=== PATIENT | male | born 1955 | race Caucasian/White ===

== ENCOUNTER 2017-05-28 22:38 | Inpatient (IN) | payer SELFPAY ==
[2017-05-28] MEDS ORDERED: ASPIRIN 81 MG TABLET, CHEWABLE PO ONE (22:45)
--- NOTE | 2017-05-28 23:09 | ER Document Report ---
ED Medical Screen (RME) - General Chief Complaint: Chest Tightness Stated Complaint: CHEST PAIN Time Seen by Provider: 05/28/17 23:06 Mode of Arrival: Wheelchair Information source: Patient Notes: 61-year-old male presents to ED for chest pain and epigastric pain. He states he was feeling good and went to lay down. States when he turned over he also only for extremely dizzy feeling like he was going to pass out, then started vomiting, and had diarrhea suddenly at the same time. Had not been having any nausea vomiting or diarrhea before then. States he feels better now than he did. He states that in August 2015 he had an episode of sepsis where his heart kidneys and everything were affected. He states he has not had any history of that since then. I have greeted and performed a rapid initial assessment of this patient. A comprehensive ED assessment and evaluation of the patient, analysis of test results and completion of medical decision making process will be conducted by an additional ED providers. TRAVEL OUTSIDE OF THE [place] IN LAST 30 DAYS: No - Related Data Allergies/Adverse Reactions: amoxicillin [Amoxicillin] Allergy (Severe, Verified 09/17/15 14:06) Difficulty breathing Past Medical History - Past Medical History Cardiac Medical History: Reports: Hx Hypertension - CONTROLLED Denies: Hx Heart Attack Pulmonary Medical History: Denies: Hx Asthma Neurological Medical History: Denies: Hx Cerebrovascular Accident, Hx Seizures Renal/ Medical History: Denies: Hx Peritoneal Dialysis GI Medical History: Reports: Hx Ulcer - YEARS AGO. Denies: Hx Hepatitis, Hx Hiatal Hernia Infectious Medical History: Denies: Hx Hepatitis Past Surgical History: Reports: Hx Appendectomy. Denies: Hx Open Heart Surgery , Hx Pacemaker - Immunizations Hx Diphtheria, Pertussis, Tetanus Vaccination: Yes Physical Exam - Vital signs Vitals: Temp Pulse Resp BP Pulse Ox 97.5 F 80 20 90/59 L 98 05/28/17 22:44 05/28/17 22:44 05/28/17 22:44 05/28/17 22:44 05/28/17 22:44 Course - Vital Signs Vital signs: Temp Pulse Resp BP Pulse Ox 97.5 F 80 20 90/59 L 98 05/28/17 22:44 05/28/17 22:44 05/28/17 22:44 05/28/17 22:44 05/28/17 22:44
[2017-05-28 23:29] LABS: ABSOLUTE EOSINOPHILS # (AUTO) 0.1 10^3/uL (0.0-0.6); ABSOLUTE LYMPHOCYTES (AUTO) 1.3 10^3/uL (0.5-4.7); ABSOLUTE MONOCYTES (AUTO) 1.1 10^3/uL (0.1-1.4); ABSOLUTE NEUT (AUTO) 4.9 10^3/uL (1.7-8.2); BASOPHILS % (AUTO) 0.5 % (0-2); EOSINOPHILS % (AUTO) 0.9 % (0-6); HEMATOCRIT 45.5 % (37.9-51.0); HEMOGLOBIN 15.6 g/dL (13.5-17.0); HGB HCT DIFFERENCE 1.3; LYMPHOCYTES % (AUTO) 17.4 % (13-45); MEAN CORPUSCULAR HEMOGLOBIN 30.4 pg (27.0-33.4); MEAN CORPUSCULAR HGB CONC 34.3 g/dL (32.0-36.0); MEAN CORPUSCULAR VOLUME 89 fl (80-97); MONOCYTES % (AUTO) 14.9 % (3-13); RED BLOOD COUNT 5.14 10^6/uL (4.35-5.55); RED CELL DISTRIBUTION WIDTH 14.9 % (11.5-14.0); SEGMENTED NEUTROPHILS % (AUTO) 66.3 % (42-78); WHITE BLOOD COUNT 7.3 10^3/uL (4.0-10.5)
[2017-05-28 23:42] LABS: ALANINE AMINOTRANSFERASE 57 U/L (21-72); ALBUMIN 4.1 g/dL (3.5-5.0); ALKALINE PHOSPHATASE 97 U/L (38-126); ANION GAP 12 (5-19); ASPARTATE AMINO TRANSFERASE 42 U/L (17-59); BILIRUBIN,DIRECT 0.5 mg/dL (0.0-0.4); BLOOD UREA NITROGEN 18 mg/dL (7-20); CALCIUM 9.4 mg/dL (8.4-10.2); CARBON DIOXIDE 27 mmol/L (22-30); CHLORIDE 100 mmol/L (98-107); CREATINE KINASE 319 U/L (55-170); CREATININE RESULT 1.49 mg/dL (0.52-1.25); GLUCOSE 169 mg/dL (75-110); POTASSIUM 3.7 mmol/L (3.6-5.0); SODIUM 139.2 mmol/L (137-145); TOTAL PROTEIN 7.6 g/dL (6.3-8.2)
[2017-05-28 23:52] LABS: CREATINE KINASE MB 2.37 ng/mL (<4.55); TROPONIN I < 0.012 ng/mL
--- NOTE | 2017-05-29 | RADIOLOGY REPORT (SQ) ---
EXAM DESCRIPTION: CHEST SINGLE VIEW COMPLETED DATE/TIME: 05/28/2017 11:18 pm REASON FOR STUDY: chest pain COMPARISON: 08/27/2015. EXAM PARAMETERS: NUMBER OF VIEWS: One view. TECHNIQUE: Single frontal radiographic view of the chest acquired. RADIATION DOSE: NA LIMITATIONS: None. FINDINGS: LUNGS AND PLEURA: No opacities, masses or pneumothorax. No pleural effusion. MEDIASTINUM AND HILAR STRUCTURES: No masses. Contour normal. HEART AND VASCULAR STRUCTURES: Heart normal in size. Normal vasculature. BONES: No acute findings. HARDWARE: None in the chest. OTHER: No other significant finding. IMPRESSION: NO ACUTE RADIOGRAPHIC FINDING IN THE CHEST. TECHNICAL DOCUMENTATION: JOB ID: [id number]
[2017-05-29] MEDS ORDERED: NORMAL SALINE 1000 ML 1,000 ML IV ONE (00:02)
--- NOTE | 2017-05-29 00:07 | ER Document Report ---
ED General - General Chief Complaint: Chest Tightness Stated Complaint: CHEST PAIN Time Seen by Provider: 05/28/17 23:06 Mode of Arrival: Wheelchair Notes: 81-year-old male with a history of sepsis presents to the ED with several complaints. He states that he has been having epigastric pain "like my chest is cracking open" for about 3 days nonexertional and non-positional. This is constant today. Today he was lying on the sofa turn around in bed and felt extremely dizzy like the world was spinning. He then lost consciousness which was witnessed by his . She said he was pale. He also had some diarrhea. Since then he started having worsening chest pressure and vomiting and was brought to the ED. He denies cough. Chronic shortness of breath. Low-dose prednisone for rheumatoid arthritis. No blood thinners. TRAVEL OUTSIDE OF THE [place] IN LAST 30 DAYS: No - Related Data Allergies/Adverse Reactions: amoxicillin [Amoxicillin] Allergy (Severe, Verified 09/17/15 14:06) Difficulty breathing Past Medical History - General Information source: Patient - Social History Smoking Status: Former Smoker Family History: Reviewed & Not Pertinent Patient has suicidal ideation: No Patient has homicidal ideation: No - Past Medical History Cardiac Medical History: Reports: Hx Hypertension - CONTROLLED Denies: Hx Heart Attack Pulmonary Medical History: Denies: Hx Asthma Neurological Medical History: Denies: Hx Cerebrovascular Accident, Hx Seizures Renal/ Medical History: Denies: Hx Peritoneal Dialysis GI Medical History: Reports: Hx Ulcer - YEARS AGO. Denies: Hx Hepatitis, Hx Hiatal Hernia Infectious Medical History: Denies: Hx Hepatitis Past Surgical History: Reports: Hx Appendectomy. Denies: Hx Open Heart Surgery , Hx Pacemaker - Immunizations Hx Diphtheria, Pertussis, Tetanus Vaccination: Yes Review of Systems - Review of Systems Notes: REVIEW OF SYSTEMS GEN: Denies fever, chills, weight loss ENT: Denies sore throat, nasal discharge, ear pain EYES: Denies blurry vision, eye pain, discharge CV: Chest pain RESP: Denies cough, shortness of breath, wheezing GI: Diarrhea MSK: Denies joint pain/swelling, edema, SKIN: Denies rash, skin lesions LYMPH: Denies swollen glands/lymph nodes NEURO: Dizziness and loss of consciousness PSYCH: Denies depression, suicidal or homicidal ideation PHYSICAL EXAMINATION General: No acute distress, well-nourished Head: Atraumatic, normocephalic ENT: Mouth normal, oropharynx moist, no exudates or tonsillar enlargement Eyes: Conjunctiva normal, pupils equal, lids normal Neck: No JVD, supple, no guarding CVS: Normal rate, regular rhythm, no murmurs Resp: No resp distress, equal and normal breath sounds bilaterally GI: Nondistended, soft, obese, no tenderness to palpation, no rebound or guarding Ext: No deformities, no edema, normal range of motion in upper and lower ext Back: No CVA or midline TTP Skin: Red rash to right flank appears chronic. Multiple numerous skin tags. Lymphatic: No lymphadeopathy noted Neuro: Awake, alert. Seems slightly tired. Face symmetric. GCS 15. Radial nerve II through XII intact. No pronator drift. Physical Exam - Vital signs Vitals: Temp Pulse Resp BP Pulse Ox 97.5 F 80 20 90/59 L 98 05/28/17 22:44 05/28/17 22:44 05/28/17 22:44 05/28/17 22:44 05/28/17 22:44 Course - Re-evaluation Re-evalutation: 05/29/17 00:06 61-year-old male presents with vomiting diarrhea dizziness and syncope. He has also having chest pain for a few days. Here in the ED is hypotensive. His neuro exam is symmetric. I am concerned for sepsis from either pneumonia or UTI , hypotension from AK I dehydration from diarrhea. Doubt stroke at this time. Also concern for aortic pathology given the abdominal and chest pain with hypotension. Plan: Sepsis workup, empiric fluids, bedside ultrasound for AAA. His ECG is done and does not show ischemic change. Troponin is pending. Note: Patient was seen in triage partial lab workup was ordered. I evaluated him at 12:05 AM and elected to order sepsis labs. 05/29/17 01:08 Patient reassessed at 1 AM. Pressure now 100. Patient looks pinker and feels better. He is no longer list list. Bedside ultrasound is difficult for his aorta, so I will do a CT scan. His labs returned essentially normal 05/29/17 03:[address] aorta are normal. Chest x-ray is negative. Urinalysis is pending. Patient is doing better, this may be a dehydration however given his chest pain he will need to be admitted. Discussed with Dr. Phan who accepted. - Vital Signs Vital signs: Temp Pulse Resp BP Pulse Ox 97.5 F 80 18 100/68 94 05/28/17 22:44 05/28/17 22:44 05/29/17 01:16 05/29/17 01:16 05/29/17 01:16 - Laboratory Result Diagrams: 05/28/17 23:10 05/28/17 23:10 Laboratory results interpreted by me: 05/28/17 05/28/17 23:10 23:10 RDW 14.9 H Monocytes % 14.9 H Creatinine 1.49 H Est GFR ( Amer) 58 L Est GFR (Non-Af Amer) 48 L Glucose 169 H Direct Bilirubin 0.5 H Creatine Kinase 319 H - EKG Interpretation by Me EKG shows normal: Sinus rhythm Holland/QRS: LBBB When compared to previous EKG there are: No significant change Critical Care Note - Critical Care Note Total time excluding time spent on procedures (mins): 35 Comments: The above patient is critically ill. Not including procedures, but including direct re-evaluations, speaking with patient and/or consultants, interpreting results, and documenting, I spent the total amount of minute listed listed above on critical care time
--- NOTE | 2017-05-29 00:50 | RADIOLOGY REPORT (SQ) ---
EXAM DESCRIPTION: CHEST SINGLE VIEW COMPLETED DATE/TIME: 05/29/2017 12:29 am REASON FOR STUDY: hypoTN r/o oinfilatrate COMPARISON: None. 05/28/[address] and CR, 08/27/2016. EXAM PARAMETERS: NUMBER OF VIEWS: One view. TECHNIQUE: Single frontal radiographic view of the chest acquired. RADIATION DOSE: NA LIMITATIONS: None. FINDINGS: LUNGS AND PLEURA: Moderate lung volumes. Small atelectasis or scar of the left lung base. Stable. MEDIASTINUM AND HILAR STRUCTURES: No masses. Contour normal. HEART AND VASCULAR STRUCTURES: Heart normal in size. Normal vasculature. BONES: No acute findings. HARDWARE: None in the chest. OTHER: No other significant finding. IMPRESSION: No acute cardiopulmonary findings. TECHNICAL DOCUMENTATION: JOB ID: [id number]
--- NOTE | 2017-05-29 02:08 | RADIOLOGY REPORT (SQ) ---
EXAM DESCRIPTION: CT HEAD WITHOUT COMPLETED DATE/TIME: 05/29/2017 1:57 am REASON FOR STUDY: dizzy vomiting COMPARISON: 1.8.16 TECHNIQUE: Axial images acquired through the brain without intravenous contrast. Images reviewed wi th bone, brain and subdural windows. Images stored on PACS. All CT scanners at this facility use dose modulation, iterative reconstruction, and/or weight based d osing when appropriate to reduce radiation dose to as low as reasonably achievable (ALARA). [facility]: Dose Right [facility]: CareDose [facility]: Dose Right [facility]: Teradose 4D [facility]: [employer] RADIATION DOSE: Up-to-date CT equipment and radiation dose reduction techniques were employed. CTDIv ol: 64.6 mGy. DLP: 1163 mGy-cm. mGy. LIMITATIONS: None. FINDINGS: VENTRICLES: Normal size and contour. CEREBRUM: No masses. No hemorrhage. No midline shift. No evidence for acute infarction. Normal gra y/white matter differentiation. No areas of low density in the white matter. CEREBELLUM: No masses. No hemorrhage. No alteration of density. No evidence for acute infarction. EXTRAAXIAL SPACES: No fluid collections. No masses. ORBITS AND GLOBE: No intra- or extraconal masses. Normal contour of globe without masses. CALVARIUM: No fracture. PARANASAL SINUSES: No fluid or mucosal thickening. SOFT TISSUES: No mass or hematoma. OTHER: No other significant finding. IMPRESSION: NORMAL BRAIN CT WITHOUT CONTRAST. EVIDENCE OF ACUTE STROKE: NO. COMMENT: Quality ID # [id number]: Final reports with documentation of one or more dose reduction techniques (e.g., Automated exposure control, adjustment of the mA and/or kV according to patient size, use of iterative reconstruction technique) TECHNICAL DOCUMENTATION: JOB ID: [id number] [employer]- All Rights Reserved
--- NOTE | 2017-05-29 02:21 | RADIOLOGY REPORT (SQ) ---
EXAM DESCRIPTION: CTA ABDOMEN/PELVIS W WO COMPLETED DATE/TIME: 05/29/2017 1:57 am REASON FOR STUDY: abd pn, hypoTN COMPARISON: 08/27/2015 TECHNIQUE: CT scan of the abdominal aorta extending to the iliac bifurcation performed with and with out intravenous contrast using helical scanning technique with dynamic intravenous contrast injection . Images reviewed with lung, soft tissue, and bone windows. Reconstructed coronal and sagittal MPR im ages reviewed. All images stored on PACS. Advanced 3D imaging as volume rendering, MIPS, SSD performed? yes All CT scanners at this facility use dose modulation, iterative reconstruction, and/or weight based d osing when appropriate to reduce radiation dose to as low as reasonably achievable (ALARA). [facility]: Dose Right [facility]: CareDose [facility]: Dose Right [facility]: Teradose 4D [facility]: [employer] CONTRAST TYPE AND DOSE: contrast/concentration: Isovue 370.00 mg/ml; Total Contrast Delivered: 100.0 ml; Total Saline Delivered: 52.0 ml RENAL FUNCTION: Creatinine 1.5 LIMITATIONS: None. FINDINGS: AORTA AND VESSELS: No aneurysm. No dissection. Renal arteries, SMA, celiac without stenosi s. Small coronary arterial calcification atherosclerosis. LUNG BASES: No significant findings. No nodules or infiltrates. Small scattered atelectasis or scar. Mild emphysema. LIVER: Normal size. No masses or dilated ducts. Moderate hepatic steatosis. SPLEEN: Normal size. No focal lesions. Prominent. PANCREAS: No masses. No significant calcifications. No adjacent inflammation or peripancreatic fluid collections. Pancreatic duct not dilated. GALLBLADDER: No identified stones by CT criteria. No inflammatory changes to suggest cholecystitis. ADRENAL GLANDS: No significant masses or asymmetry. RIGHT KIDNEY AND URETER: No mass, calculi or urinary tract obstruction. Small likely benign cysts. LEFT KIDNEY AND URETER: No mass, calculi or urinary tract obstruction. Small likely benign cysts. RETROPERITONEUM: No retroperitoneal adenopathy, hemorrhage or masses. BOWEL AND PERITONEAL CAVITY: No masses or inflammatory changes. No free fluid or peritoneal masses. APPENDIX: Surgically absent. ABDOMINAL WALL: No masses. No hernias. BONY STRUCTURES: Minimal T11 and T12 anterior vertebral wedging, chronic. Vacuum desiccated-protrusi ve disc disease and spondylosis between the L4 and S1 levels contribute to [id number] spinal an d foraminal canal stenoses including moderate thecal sac compression at the L4-5 level. 3-D IMAGING: Confirms the above findings. OTHER: Right inguinal calcified granulomata partially imaged. IMPRESSION: No acute findings. NO ABDOMINAL AORTIC ANEURYSM, DISSECTION OR SIGNIFICANT STENOSIS. C hronic desiccated bulge/protrusive disc disease between the L4 and S1 levels. TECHNICAL DOCUMENTATION: JOB ID: [id number] Quality ID # [id number]: Final reports with documentation of one or more dose reduction techniques (e.g., Au tomated exposure control, adjustment of the mA and/or kV according to patient size, use of iterative reconstruction technique) 2010 [employer]- All Rights Reserved
[2017-05-29 03:25] LABS: APPEARANCE,URINE CLEAR; BILIRUBIN,URINE NEGATIVE (NEGATIVE); GLUCOSE, URINE NEGATIVE (NEGATIVE); KETONES,URINE NEGATIVE (NEGATIVE); LEUKOCYTE ESTERASE,URINE NEGATIVE (NEGATIVE); NITRITE,URINE NEGATIVE (NEGATIVE); PROTEIN,URINE NEGATIVE (NEGATIVE); URINE SPECIFIC GRAVITY 1.041; UROBILINOGEN,URINE NEGATIVE mg/dL (<2.0)
[2017-05-29] MEDS ORDERED: PROMETHAZINE HCL 25 MG TABLET PO PRN (04:49)
[2017-05-29] MEDS ORDERED: NORMAL SALINE 1000 ML 1,000 ML IV PRN (07:48)
[2017-05-29] MEDS ORDERED: ONDANSETRON HCL INJ/PF 4 MG/2 ML SDV IV PRN (07:48)
--- NOTE | 2017-05-29 08:09 | EKG REPORT ---
SEVERITY:- ABNORMAL ECG - SINUS RHYTHM LEFT BUNDLE BRANCH BLOCK : Confirmed by: Juan Mattson MD 29-May-2017 08:09:18
[2017-05-29] MEDS ORDERED: CALCIUM CARBONATE 500 MG TAB.CHEW PO PRN (08:34)
--- NOTE | 2017-05-29 08:39 | PDOC H&P ---
History of Present Illness Admission Date/PCP: EMERITA RUSSO MD Patient complains of: Dizziness and passing out History of Present Illness: WARREN MEDEROS is a 61 year old male still rheumatoid arthritis and hypertension presenting with a complaint of not feeling well since Sunday. Patient states he stayed home from work on Sunday. Patient said he was feeling better. Patient stated he had an episode of what he thought was passing out. Patient said he was lying on the sofa and rolled over when he rolled over the house began to spin. Patient states that when he sat up he became nauseated and vomited and also had diarrhea. Patient states she also developed some cold sweats and some chest discomfort. When describing the chest discomfort was more so in the epigastric region. Patient states he used to have very bad heartburn in the past. Patient says he often times he drinks milk or take Rolaids and it goes away. She denies any chest pain at this time. Patient denies any history of heart attack or stroke. States that he has had vertigo in the past. Patient states that he had been eating well since Sunday. Patient states he has been drinking but maybe not enough. 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 Patient states he drinks coffee sodas but tries to drink more water than anything. Patient states that his did have a cold however he has not had any cold symptoms. Patient does have a history of sinus for which he takes nasal spray. Patient also complains of chronic fatigue. ED patient had a CT of the head which was negative for stroke. Patient was given fluid bolus. Patient troponins are negative thus far. Patient had a CTA abdomen and pelvis which did not show any acute findings. Vitals are currently stable. Electrolytes are normal for the exception of creatinine which appears to be chronic. Patient is being brought for observation. Past Medical History Cardiac Medical History: Reports: Hypertension - CONTROLLED Denies: Myocardial Infarction Pulmonary Medical History: Denies: Asthma Neurological Medical History: Denies: Seizures GI Medical History: Reports: Gastroesophageal Reflux Disease Denies: Hepatitis, Hiatal Hernia Hematology: Denies: Anemia, Sickle Cell Disease Past Surgical History Past Surgical History: Reports: Appendectomy Denies: Pacemaker Social History Information Source: Patient Lives with: Spouse/Significant other Smoking Status: Former Smoker Frequency of Alcohol Use: None Hx Recreational Drug Use: No Drugs: None Hx Prescription Drug Abuse: No - Advance Directive Resuscitation Status: Full Code Family History Family History: CAD, DM Parental Family History Reviewed: Yes Children Family History Reviewed: NA Sibling(s) Family History Reviewed.: NA Medication/Allergy Home Medications: Losartan/Hydrochlorothiazide [Losartan-Hctz 100-25 mg Tab] 100 mg PO DAILY 05/29 Prednisone 5 mg PO DAILY 05/29/17 Tofacitinib Citrate [Xeljanz Xr] 11 mg PO DAILY 05/29/17 Allergies/Adverse Reactions: amoxicillin [Amoxicillin] Allergy (Severe, Verified 09/17/15 14:06) Difficulty breathing Review of Systems Constitutional: PRESENT: anorexia, fatigue, weakness. ABSENT: fever(s), night sweats Eyes: ABSENT: visual disturbances Nose, Mouth, and Throat: PRESENT: vertigo. ABSENT: headache(s) Cardiovascular: PRESENT: chest pain. ABSENT: edema Respiratory: ABSENT: cough Gastrointestinal: PRESENT: heartburn, nausea, vomiting Genitourinary: ABSENT: hematuria Musculoskeletal: PRESENT: muscle weakness Neurological: PRESENT: syncope, vertigo, weakness. ABSENT: convulsions, focal weakness Endocrine: ABSENT: cold intolerance Hematologic/Lymphatic: ABSENT: lymphadenopathy Allergic/Immunologic: PRESENT: as per HPI Physical Exam Vital Signs: Temp Pulse Resp BP Pulse Ox 97.5 F 80 16 116/68 96 05/28/17 22:44 05/28/17 22:44 05/29/17 07:01 05/29/17 07:01 05/29/17 07:01 Intake & Output 05/28/17 05/29/17 05/30/17 06:59 06:59 06:59 Weight 127.006 kg General appearance: PRESENT: no acute distress, obese Head exam: PRESENT: normocephalic Eye exam: PRESENT: EOMI, PERRLA, other - skin tags around the eye. ABSENT: periorbital swelling, scleral icterus Teeth exam: PRESENT: poor dentation Neck exam: PRESENT: full ROM. ABSENT: tracheal deviation Respiratory exam: PRESENT: clear to auscultation ilan, unlabored. ABSENT: retraction, wheezes Cardiovascular exam: PRESENT: RRR Pulses: PRESENT: +2 pedal pulses bilateral GI/Abdominal exam: PRESENT: normal bowel sounds, soft, other. ABSENT: rebound - protuberant, tenderness Rectal exam: PRESENT: deferred Extremities exam: ABSENT: pedal edema Musculoskeletal exam: PRESENT: full ROM, normal inspection Neurological exam: PRESENT: alert, awake, oriented to person, oriented to place , oriented to time, oriented to situation, CN II-XII grossly intact Psychiatric exam: PRESENT: normal mood Skin exam: PRESENT: intact, warm Results Laboratory Results: 05/28/17 23:10 05/28/17 23:10 05/28/17 05/28/17 05/29/17 23:10 23:10 00:24 WBC 7.3 RBC 5.14 Hgb 15.6 Hct 45.5 MCV 89 MCH 30.4 MCHC 34.3 RDW 14.9 H Plt Count 186 Seg Neutrophils % 66.3 Lymphocytes % 17.4 Monocytes % 14.9 H Eosinophils % 0.9 Basophils % 0.5 Absolute Neutrophils 4.9 Absolute Lymphocytes 1.3 Absolute Monocytes 1.1 Absolute Eosinophils 0.1 Absolute Basophils 0.0 Sodium 139.2 Potassium 3.7 Chloride 100 Carbon Dioxide 27 Anion Gap 12 BUN 18 Creatinine 1.49 H Est GFR ( Amer) 58 L Est GFR (Non-Af Amer) 48 L Glucose 169 H Lactic Acid 1.2 Calcium 9.4 Total Bilirubin 1.0 AST 42 ALT 57 Alkaline Phosphatase 97 Total Protein 7.6 Albumin 4.1 Urine Color Urine Appearance Urine pH Ur Specific Lotus Urine Protein Urine Glucose (UA) Urine Ketones Urine Blood Urine Nitrite Ur Leukocyte Esterase Urine WBC (Auto) Urine RBC (Auto) 05/29/17 02:58 WBC RBC Hgb Hct MCV MCH MCHC RDW Plt Count Seg Neutrophils % Lymphocytes % Monocytes % Eosinophils % Basophils % Absolute Neutrophils Absolute Lymphocytes Absolute Monocytes Absolute Eosinophils Absolute Basophils Sodium Potassium Chloride Carbon Dioxide Anion Gap BUN Creatinine Est GFR ( Amer) Est GFR (Non-Af Amer) Glucose Lactic Acid Calcium Total Bilirubin AST ALT Alkaline Phosphatase Total Protein Albumin Urine Color YELLOW Urine Appearance CLEAR Urine pH 6.0 Ur Specific Lotus 1.041 Urine Protein NEGATIVE Urine Glucose (UA) NEGATIVE Urine Ketones NEGATIVE Urine Blood NEGATIVE Urine Nitrite NEGATIVE Ur Leukocyte Esterase NEGATIVE Urine WBC (Auto) 4 Urine RBC (Auto) 1 05/28/17 05/28/17 05/29/17 23:10 23:10 02:40 Creatine Kinase 319 H CK-MB (CK-2) 2.37 Troponin I < 0.012 0.017 Impressions: Chest X-Ray 05/29/17 00:03 IMPRESSION: No acute cardiopulmonary findings. Abdomen/Pelvis CTA 05/29/17 01:09 IMPRESSION: No acute findings. NO ABDOMINAL AORTIC ANEURYSM, DISSECTION OR SIGNIFICANT STENOSIS. Chronic desiccated bulge/protrusive disc disease between the L4 and S1 levels. Head CT 05/29/17 01:09 IMPRESSION: NORMAL BRAIN CT WITHOUT CONTRAST. EVIDENCE OF ACUTE STROKE: NO. Assessment & Plan - Diagnosis (1) Syncope Qualifiers: Syncope type: vasovagal syncope Qualified Code(s): R55 - Syncope and collapse Is this a current diagnosis for this admission?: Yes Plan: Most likely likely vasovagal due to the fact that patient reports the episode when he attempted to stand up. As patient states will continue IV hydration. Will check orthostatics. Place patient on telemetry. Check carotid Doppler and echo. CT of the head was negative. Will hold losartan and hydrochlorothiazide. Patient to go to bathroom with assistance. (2) CKD (chronic kidney disease) stage 3, GFR 30-59 ml/min Is this a current diagnosis for this admission?: Yes Plan: Appears to be chronic in nature. Patient creatinine was elevated in the past. Will hold losartan and hydrochlorothiazide and start gentle hydration. Will follow up renal function in the morning. (3) Arthritis or polyarthritis, rheumatoid Qualifiers: Rheumatoid arthritis location: unspecified site Is this a current diagnosis for this admission?: Yes Plan: Patient follows up with a grain trimmer and is on chronic steroids and Xeljanz. (4) Hypertension Qualifiers: Hypertension type: essential hypertension Qualified Code(s): I10 - Essential (primary) hypertension Is this a current diagnosis for this admission?: Yes Plan: Patient blood pressures low normal. Will hold patient blood pressure medications considering recent syncopal episode. (5) GERD (gastroesophageal reflux disease) Qualifiers: Esophagitis presence: esophagitis presence not specified Qualified Code(s) : K21.9 - Gastro-esophageal reflux disease without esophagitis Is this a current diagnosis for this admission?: Yes Plan: Patient reports a history of "bad heartburn". Will continue PPI and as needed Tums. (6) Obesity Qualifiers: Obesity type: due to excess calories Obesity classification: adult class 3 (BMI >= 40) Body mass index: BMI 40.0-44.9 Is this a current diagnosis for this admission?: Yes Plan: Counseled patient on diet and physical activity as tolerated. (7) Fatigue Qualifiers: Fatigue type: chronic, unspecified Is this a current diagnosis for this admission?: Yes Plan: May be related to his rheumatoid arthritis. Will check B12, folate, thyroid, Vitamin D and hemoglobin A1c. - Time Time Spent: 30 to 50 Minutes Medications reviewed and adjusted accordingly: Yes Anticipated discharge: Home Within: within 48 hours
[2017-05-29 08:54] LABS: CHOLESTEROL 175.47 mg/dL (0-200); Direct HDL 33 mg/dL (>40); TRIGLYCERIDES 190 mg/dL (<150)
[2017-05-29] MEDS ORDERED: LANSOPRAZOLE 30 MG TAB.RAP.DR PO ONE (09:00)
[2017-05-29 09:04] LABS: DIRECT LDL 121 mg/dL (<100)
[2017-05-29] MEDS ORDERED: TOFACITINIB CITRATE 11 MG PO SCH (10:00)
--- NOTE | 2017-05-29 11:06 | RADIOLOGY REPORT (SQ) ---
EXAM DESCRIPTION: CAROTID DOPPLER COMPLETED DATE/TIME: 05/29/2017 10:03 am REASON FOR STUDY: syncope COMPARISON: None. TECHNIQUE: Grayscale ultrasound, Doppler velocity and spectra, and color Doppler images acquired of the extra-cranial carotid and vertebral arteries. Images stored on PACS. LIMITATIONS: None. FINDINGS: RIGHT CAROTID CCA Velocities: 6 7 cm/s. ICA Velocities Peak systolic 70cm/s. End diastolic 37cm/s. Proximal ICA/CCA peak systolic ratio 1.07. Spectra normal. No significant plaque. LEFT CAROTID CCA Velocities: 64 cm/s ICA Velocities Peak systolic 82cm/s. End diastolic 32cm/s. Proximal ICA/CCA peak systolic ratio 1.29. Spectra normal. No significant plaque. VERTEBRAL ARTERIES: Antegrade flow. Normal waveforms. SUBCLAVIAN ARTERIES: No finding. OTHER: No other significant finding. IMPRESSION: NO HEMODYNAMICALLY SIGNIFICANT STENOSIS. COMMENT: Quality ID #[id number]: Velocity criteria are extrapolated from the diameter data as defined by t carl Society of Radiologists in Ultrasound Consensus Conference. Radiology 2003: 229; 340-346. TECHNICAL DOCUMENTATION: JOB ID: [id number] [employer]- All Rights Reserved
--- NOTE | 2017-05-29 12:59 | XCELERA REPORT ---
[address] [address] Transthoracic Echocardiogram Report Name: WARREN MEDEROS Age: 61 yrs Gender: Male : 1955 Patient Status: Inpatient Patient Location: [place] [address]^A Study Date: 05/29/2017 08:42 AM Height: 69 in Weight: 280 lb BSA: 2.4 m2 Procedure: A complete two-dimensional transthoracic echocardiogram was performed (2D, M-mode, spectral and color flow Doppler). The study was technically difficult with many images being suboptimal in quality. Reason For Study: Syncope Ordering Physician: АНДРЕЙ SOLIZ Performed By: Hanna Alford Interpretation Summary The study was technically difficult with many images being suboptimal in quality. Left ventricular systolic function is severely reduced. Consider additional methods to assess LVEF such as MUGA scan, CTA heart, cardiac MRI, JESSIKA, etc. if clinically indicated. Doppler measurements suggest pseudonormalized left ventricular relaxation, which is associated with grade II/IV or mild to moderate diastolic dysfunction There is severe global hypokinesis of the left ventricle. Regional wall motion abnormalities cannot be excluded due to limited visualization. The left ventricular apex is not well visualized. Thrombus can not be excluded. The left ventricle is grossly normal size. The right ventricular systolic function is normal. The left atrial size is normal. The right atrium is normal in size There is a trace to mild amount of mitral regurgitation There is no mitral valve stenosis. No aortic regurgitation is present. There is no aortic valve stenosis There is a trace or physiologic amount of tricuspid regurgitation Tricuspid regurgitation jet envelope not well defined to measure RV systolic pressure accurately. The aortic root is not well visualized. The inferior vena cava was not well visualized There is no pericardial effusion. MMode/2D Measurements & Calculations RVDd: 3.7 cm LVIDd: 4.3 cm FS: 14.5 % Ao root diam: 2.5 cm IVSd: 0.90 cm LVIDs: 3.7 cm EDV(Teich): 82.5 ml LVPWd: 0.89 cm ESV(Teich): 56.9 ml Ao root area: 5.0 cm2 EF(Teich): 31.0 % LA dimension: 3.2 cm Doppler Measurements & Calculations MV E max dragan: MV P1/2t max dragan: Ao V2 max: LV V1 max P.8 cm/sec 92.3 cm/sec 119.0 cm/sec 2.0 mmHg MV A max dragan: MV P1/2t: 58.1 msec Ao max PG: LV V1 max: 126.9 cm/sec 5.7 mmHg 70.1 cm/sec MV E/A: 0.72 MVA(P1/2t): 3.8 cm2 MV dec slope: 465.6 cm/sec2 PA V2 max: PI end-d dragan: 99.7 cm/sec 74.7 cm/sec PA max P.0 mmHg Left Ventricle The left ventricle is grossly normal size. Left ventricular systolic function is severely reduced. Consider additional methods to assess LVEF such as MUGA scan, CTA heart, cardiac MRI, JESSIKA, etc. if clinically indicated. Doppler measurements suggest pseudonormalized left ventricular relaxation, which is associated with grade II/IV or mild to moderate diastolic dysfunction. There is severe global hypokinesis of the left ventricle. Regional wall motion abnormalities cannot be excluded due to limited visualization. The left ventricular apex is not well visualized. Thrombus can not be excluded. Right Ventricle The right ventricle is grossly normal size. There is normal right ventricular wall thickness. The right ventricular systolic function is normal. Atria The right atrium is normal in size. The left atrial size is normal. Interarterial septum not well visualized and not well dopplered. Cannot comment on ASD/PFO presence. Mitral Valve The mitral valve is not well visualized. There is no mitral valve stenosis. There is a trace to mild amount of mitral regurgitation. Aortic Valve The aortic valve is not well visualized secondary to technical limitations. There is no aortic valve stenosis. No aortic regurgitation is present. Tricuspid Valve The tricuspid valve is not well visualized secondary to technical limitations. There is no tricuspid stenosis. There is a trace or physiologic amount of tricuspid regurgitation. Tricuspid regurgitation jet envelope not well defined to measure RV systolic pressure accurately. Pulmonic Valve The pulmonic valve is not well visualized. Great Vessels The aortic root is not well visualized. The inferior vena cava was not well visualized. Effusions There is no pericardial effusion. Incidental Findings Consider alternative methods to evaluate LVEF such as MUGA scan, cardiac MRI, or cardiac CTA. : АНДРЕЙ SOLIZ > Hector Briseno
[2017-05-29] MEDS: PREDNISONE 5 MG TABLET PO SCH (15:30)
[2017-05-29] MEDS: ENOXAPARIN SODIUM INJ 40 MG/0.4 ML DISP.SYRIN SUBCUT SCH (15:30)
[2017-05-29] MEDS: ACETAMINOPHEN 325 MG TABLET PO PRN (16:17)
--- NOTE | 2017-05-29 18:15 | EKG REPORT ---
SEVERITY:- ABNORMAL ECG - SINUS RHYTHM NONSPECIFIC INTRAVENTRICULAR CONDUCTION DELAY BORDERLINE R WAVE PROGRESSION, ANTERIOR LEADS : Confirmed by: Juan Mattson MD 29-May-2017 18:13:57
[2017-05-29] MEDS: FLUCONAZOLE 100 MG TABLET PO SCH (21:27)
[2017-05-29] MEDS: NYSTATIN TOPICAL POWDER 15 GM TP SCH (22:02)
[2017-05-30] MEDS: LANSOPRAZOLE 30 MG TAB.RAP.DR PO SCH (05:15)
[2017-05-30 07:12] LABS: ANION GAP 10 (5-19); BLOOD UREA NITROGEN 19 mg/dL (7-20); CALCIUM 8.8 mg/dL (8.4-10.2); CARBON DIOXIDE 25 mmol/L (22-30); CHLORIDE 106 mmol/L (98-107); GLUCOSE 126 mg/dL (75-110); MAGNESIUM 2.2 mg/dL (1.6-2.3); SODIUM 141.3 mmol/L (137-145)
[2017-05-30 07:29] LABS: FREE T3 3.97 pg/mL (2.77-5.27)
[2017-05-30 07:43] LABS: THYROID STIMULATING HORMONE 5.03 uIU/mL (0.47-4.68)
[2017-05-30] MEDS ORDERED: RAMIPRIL 1.25 MG CAPSULE PO SCH (10:00)
[2017-05-30] MEDS: PREDNISONE 5 MG TABLET PO SCH (10:18)
[2017-05-30] MEDS: NYSTATIN TOPICAL POWDER 15 GM TP SCH ×2 (10:27→22:55)
[2017-05-30] MEDS: ENOXAPARIN SODIUM INJ 40 MG/0.4 ML DISP.SYRIN SUBCUT SCH (10:28)
[2017-05-30] MEDS: CARVEDILOL 3.125 MG TABLET PO SCH ×2 (11:01→22:54)
[2017-05-30] MEDS ORDERED: GLUCAGON,HUMAN RECOMB 1 MG INJ IM PRN ×2 (11:54→18:11)
[2017-05-30] MEDS ORDERED: DEXTROSE 40% GEL 15 GM TUBE PO PRN ×3 (11:54→18:11)
[2017-05-30] MEDS ORDERED: DEXTROSE 50%-WATER SYRINGE 25 GM/50 ML DOSE IV PRN (11:54)
[2017-05-30] MEDS ORDERED: DEXTROSE 50%-WATER SYRINGE 12.5 GM/25 ML DOSE IV PRN (11:54)
[2017-05-30] MEDS ORDERED: DEXTROSE 40% GEL 15 GM TUBE X 2 PO PRN (11:54)
[2017-05-30] MEDS ORDERED: INSULIN LISPRO 100 UNIT/ML 3 ML VIAL SUBCUT SCH (16:00)
[2017-05-30] MEDS ORDERED: DEXTROSE 50%-WATER 25 GM/50 ML DISP.SYRIN IV PRN ×2 (18:11)
[2017-05-30] MEDS ORDERED: INSULIN LISPRO 100 UNIT/ML 3 ML VIAL SUBCUT PRN (18:11)
[2017-05-30] MEDS ORDERED: INFLUENZA ADLT QUAD (36MOS+) 2017-18 VAC 0.5 ML SYR IM PRN (18:43)
--- NOTE | 2017-05-30 19:37 | PDOC CONSULTATION ---
Consultation Consult Date: 05/30/17 Attending physician:: АНДРЕЙ WYLIE Consult reason:: Syncope, abnormal EKG, abnormal echo History of Present Illness Admission Date/PCP: 05/29/17 07:48 EMERITA RUSSO MD Patient complains of: Near syncope History of Present Illness: WARREN MEDEROS is a 61 year old male with rheumatoid arthritis and hypertension presenting with a complaint of not feeling well since Sunday. Patient states he stayed home from work on Sunday. Patient said he was feeling better. Patient stated he had an episode of what he thought was passing out. Patient said he was lying on the sofa and rolled over when he rolled over the house began to spin. Patient states that when he sat up he became nauseated and vomited and also had diarrhea. Patient states he also developed some cold sweats and some chest discomfort. When describing the chest discomfort was more so in the epigastric region. Patient states he used to have very bad heartburn in the past. Patient says he often times he drinks milk or take Rolaids and it goes away. She denies any chest pain at this time. Patient denies any history of heart attack or stroke. States that he has had vertigo in the past. Patient states that he had been eating well since Sunday. Patient states he has been drinking but maybe not enough. 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 Patient states he drinks coffee sodas but tries to drink more water than anything. Patient states that his did have a cold however he has not had any cold symptoms. Patient does have a history of sinus for which he takes nasal spray. Patient also complains of chronic fatigue. ED patient had a CT of the head which was negative for stroke. Patient was given fluid bolus. Patient troponins are negative thus far. Patient had a CTA abdomen and pelvis which did not show any acute findings. Vitals are currently stable. Electrolytes are normal for the exception of creatinine which appears to be chronic. Patient is being brought for observation. This history obtained by Dr. wylie was reviewed and confirmed. In addition patient was interviewed this morning along with patient's in the room. Patient's denied patient having had a full syncopal spell but patient was near syncopal. Patient denied any prior history of myocardial infarction, angina or congestive heart failure. Patient was however told by her primary care physician that he does have a abnormal electrocardiogram. Patient never had any cardiac evaluation in the past. Patient has however noted progressive shortness of breath fatigue and tiredness for last several months. Past Medical History Cardiac Medical History: Reports: Hypertension - CONTROLLED Denies: Myocardial Infarction Pulmonary Medical History: Denies: Asthma Neurological Medical History: Denies: Seizures GI Medical History: Reports: Gastroesophageal Reflux Disease Denies: Hepatitis, Hiatal Hernia Psychiatric Medical History: Denies: Depression Hematology: Denies: Anemia, Sickle Cell Disease Past Surgical History Past Surgical History: Reports: Appendectomy Denies: Pacemaker Social History Information Source: Patient Lives with: Spouse/Significant other Smoking Status: Former Smoker Frequency of Alcohol Use: None Hx Recreational Drug Use: No Drugs: None Hx Prescription Drug Abuse: No - Advance Directive Resuscitation Status: Full Code Surrogate healthcare decision maker:: Patient's is the surrogate decision-maker. Family History Family History: CAD, DM, Hypertension Parental Family History Reviewed: Yes Children Family History Reviewed: Yes Sibling(s) Family History Reviewed.: Yes Medication/Allergy Home Medications: Fluticasone Propionate [Flonase Nasal Yolo 50 Mcg/Yolo 16 gm] 1 spray NASL BID 05/29/17 Losartan/Hydrochlorothiazide [Losartan-Hctz 100-25 mg Tab] 100 mg PO DAILY 05/29 Prednisone 5 mg PO DAILY 05/29/17 Tofacitinib Citrate [Xeljanz Xr] 11 mg PO DAILY 05/29/17 Allergies/Adverse Reactions: amoxicillin [Amoxicillin] Allergy (Severe, Verified 09/17/15 14:06) Difficulty breathing Review of Systems Review of Systems: Please see history of present illness and past medical history as wall. Constitutional: No fever or chills reported. Head : No recent chronic headaches, recent head injury. Eyes: No recent eye pain, diplopia, redness, discharge, acute visual changes. Ears: No recent chronic ear pain, acute hearing loss, ear discharge. Oral cavity: No recent ulcerations, bleeding, oral cavity discomfort. Neck: No recent acute neck pain reported. Hematologic: No recent easy bruising or bleeding or hematologic malignancy reported. Lymphatic: No recent lymphatic malignancy, chronic lymphadenopathy reported yet Cardiovascular system review: See history of present illness. Respiratory system review: No recent chronic cough, hemoptysis, blood clots in the lungs reported. Mild Shortness of breath on exertion Gastrointestinal system review: Negative for any recent acute or chronic abdominal pain, hematemesis, melena, recent change in bowel habits. Recent nausea vomiting and diarrhea. Genitourinary system review: No recent acute or chronic hematuria, flank pain, UTI etc. reported. Skin system review: Negative for any recent abnormal bruising, no rash, no pruritus reported. Neurologic: No prior history of strokes, mini strokes, seizure disorder. History of vertigo but no real strokes. Psychologic: No history of major psychosis or major depression reported. Musculoskeletal: Minor aches and pains reported. No acute joint swelling reported. Describes history of chronic rheumatoid arthritis. Endocrine: No recent polyuria, polydipsia, recent heat or cold intolerance. Physical Exam Vital Signs: Temp Pulse Resp BP Pulse Ox 98.2 F 99 20 119/80 96 05/30/17 15:27 05/30/17 15:27 05/30/17 07:30 05/30/17 15:27 05/30/17 15:27 Intake & Output 05/29/17 05/30/17 05/31/17 06:59 06:59 06:59 Intake Total 1131 1700 Balance 1131 1700 Weight 126.8 kg Exam: GENERAL: well-nourished and in no acute distress. Alert and oriented x3 HEAD: Atraumatic, normocephalic. EYES: Pupils equal round and reactive to light, extraocular movements intact, sclera anicteric, conjunctiva are normal. ENT: TMs normal, nares patent, oropharynx clear without exudates. Moist mucous membranes. No oral ulcerations or bleeding gums noted NECK: supple without lymphadenopathy. Trachea is central. No cervical or axillary lymphadenopathy noted. Carotids are 2+, JVD WNL LUNGS: Respiration seems nonlabored, no significant accessory muscle action noted. Breath sounds clear to auscultation bilaterally and equal noted. No wheezes rales or rhonchi noted. No significant dullness noted on percussion. CHEST: Palpation of the chest wall shows no significant chest wall tenderness. No other significant abnormalities noted. 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 ABDOMEN: Soft, no significant tenderness appreciated, normoactive bowel sounds. No guarding, no rebound. No rigidity noted . No masses appreciated. EXTREMITIES: Pedal pulses are 1-2+, no calf tenderness noted. No clubbing or cyanosis.trace to 1+ pedal edema noted NEUROLOGICAL: Focused neurological exam showed no significant neurologic deficit. Normal speech, no focal weakness appreciated. PSYCH: Normal mood, normal affect. Judgment and insight within normal limits. SKIN: No significant ecchymosis, rash, ulcerations or signs of pruritus noted. MUSCULOSKELETAL EXAM: No significant joint swelling noted. Results Laboratory Results: 05/30/17 06:40 05/30/17 05/30/17 06:40 06:40 Sodium 141.3 Potassium 4.0 Chloride 106 Carbon Dioxide 25 Anion Gap 10 BUN 19 Creatinine 1.40 H Est GFR ( Amer) > 60 Est GFR (Non-Af Amer) 52 L Glucose 126 H Calcium 8.8 Magnesium 2.2 Vitamin B12 334.0 Folate 10.70 TSH 5.03 H Free T4 1.23 Free T3 pg/mL 3.97 05/29/17 05/29/17 05/30/17 08:27 14:41 06:40 Troponin I 0.016 0.015 NT-Pro-B Natriuret Pep 386 EKG Comments: Sinus rhythm, nonspecific IVCD left bundle branch block type pattern. Impressions: Carotid Doppler Study 05/29/17 00:00 IMPRESSION: NO HEMODYNAMICALLY SIGNIFICANT STENOSIS. Chest X-Ray 05/29/17 00:03 IMPRESSION: No acute cardiopulmonary findings. Abdomen/Pelvis CTA 05/29/17 01:09 IMPRESSION: No acute findings. NO ABDOMINAL AORTIC ANEURYSM, DISSECTION OR SIGNIFICANT STENOSIS. Chronic desiccated bulge/protrusive disc disease between the L4 and S1 levels. Head CT 05/29/17 01:09 IMPRESSION: NORMAL BRAIN CT WITHOUT CONTRAST. EVIDENCE OF ACUTE STROKE: NO. Assessment & Plan - Diagnosis (1) Near syncope Is this a current diagnosis for this admission?: Yes (2) Cardiomyopathy Qualifiers: Cardiomyopathy type: unspecified Qualified Code(s): I42.9 - Cardiomyopathy , unspecified Is this a current diagnosis for this admission?: Yes (3) Vertigo Is this a current diagnosis for this admission?: Yes (4) CKD (chronic kidney disease) stage 3, GFR 30-59 ml/min Is this a current diagnosis for this admission?: Yes (5) GERD (gastroesophageal reflux disease) Qualifiers: Esophagitis presence: esophagitis presence not specified Qualified Code(s) : K21.9 - Gastro-esophageal reflux disease without esophagitis Is this a current diagnosis for this admission?: Yes (6) Hypertension Qualifiers: Hypertension type: essential hypertension Qualified Code(s): I10 - Essential (primary) hypertension Is this a current diagnosis for this admission?: Yes (7) Chest pain Qualifiers: Ischemic chest pain type: unspecified angina pectoris type Is this a current diagnosis for this admission?: Yes - Notes Notes: Near syncope: By history patient seems to have vertigo, cause not clear but may include either vertebrobasilar insufficiency, inner ear problems. Cannot rule out cardiac dysrhythmia completely in view of history of cardiomyopathy being noted to have depressed LVEF. Cardiomyopathy: Exact etiology not clear. Have scheduled patient for a nuclear stress test to rule out any underlying CAD and also to evaluate LVEF by gated imaging. Chest pain: Patient had reported chest pain to other providers. Need to be evaluated further by a nuclear stress test versus heart catheterization. Heart catheterization not available at this institution therefore will schedule patient for a nuclear stress test. Vertigo: Currently stable. Chronic kidney disease: Currently stable. Continue to monitor it. Gastroesophageal reflux disease: Patient will benefit from proton pump inhibitor , weight loss and a small meal. Hypertension: Patient does give history of hypertension. Have placed patient on ramipril 1.25 mg p.o. daily and also carvedilol 3.125 mg. P.o. daily. These doses will be escalated. Patient to report any overt syncope or near syncope. Telemetry strips were reviewed. No significant dysrhythmia was noted. - Time Time Spent: 50 to 70 Minutes - CODE STATUS was discussed, patient remains full code. Surrogate decision-maker unchanged. Multiple medical problems were addressed. More than 50% of the time spent coordinating care, discussing management plans with involved caregivers. Management plans discussed with involved personnels. Medical decision making was of moderate to high complexity , patient's has multiple comorbidities. Medications reviewed and adjusted accordingly: Yes
[2017-05-30] MEDS: ATORVASTATIN CALCIUM 40 MG TABLET PO SCH (22:54)
[2017-05-30] MEDS: FLUCONAZOLE 100 MG TABLET PO SCH (22:54)
[2017-05-31] MEDS: LANSOPRAZOLE 30 MG TAB.RAP.DR PO SCH (05:25)
[2017-05-31] MEDS ORDERED: CARVEDILOL 6.25 MG TABLET PO ONE (11:15)
[2017-05-31] MEDS: ENOXAPARIN SODIUM INJ 40 MG/0.4 ML DISP.SYRIN SUBCUT SCH (11:27)
[2017-05-31] MEDS: FLUTICASONE NASAL SPRAY 50 MCG/SPRY 120 SPRAY/16 GM NASL SCH (11:29)
[2017-05-31] MEDS: PREDNISONE 5 MG TABLET PO SCH (11:31)
[2017-05-31] MEDS ORDERED: AMINOPHYLLINE INJ/PF 250 MG/10 ML SDV IV ONE (11:35)
[2017-05-31] MEDS ORDERED: REGADENOSON INJ 0.4 MG/5 ML DISP.SYRIN IV ONE (11:35)
[2017-05-31] MEDS: NYSTATIN TOPICAL POWDER 15 GM TP SCH ×2 (11:35→21:51)
[2017-05-31] MEDS ORDERED: RAMIPRIL 2.5 MG CAPSULE PO ONE (12:30)
[2017-05-31] MEDS ORDERED: CEPHALEXIN 500 MG CAPSULE PO SCH (14:00)
--- NOTE | 2017-05-31 14:10 | Physician Advisory Note ---
Physician Advisor ProgressNote .: Pursuant to the plan for [facility], I have reviewed the medical record for this patient. Physician Advisor Statement: Excellent documentation of obesity w/BMI 41, likely type of syncope, CKD stage. Thanks for your help w/specific documentation! CKent
[2017-05-31] MEDS: INSULIN REG, HUMAN 100 UNIT/ML 3 ML VIAL (PYX) SUBCUT PRN (15:03)
--- NOTE | 2017-05-31 15:48 | DRAGON STRESS TEST REPORT ---
INTRAVENOUS LEXISCAN CARDIOLITE STRESS TEST USING SINGLE PHOTON EMMISION COMPUTERIZED TOMOGRAPHIC. DATE OF PROCEDURE: May 31, 2017 INDICATION : Syncope, cardiomyopathy, history of chest pain CARDIAC RISK FACTORS: Diabetes, hypertension, dyslipidemia, family history of CAD RESTING EKG: Sinus rhythm with left bundle branch block pattern. STRESS EKG: No significant changes noted with LexiScan bolus REASON FOR TERMINATION: Protocol. PROCEDURE REPORT: Baseline heart rate 90 beats per minute with blood pressure of 118/83. Patient had no significant complaints. Heart rate at 2 minutes post bolus 109 with a blood pressure of 169/63. 3 minutes post bolus heart rate 96 with blood pressure of 167/71. No significant EKG changes were noted. Patient had no significant complaints during the procedure or postprocedure. Patient injected with Aminophyllin 75 mg at 3 minutes or later after Lexiscan bolus. CONCLUSIONS: Normal EKG and hemodynamic response to IV LexiScan. NUCLEAR DATA: At rest the patient was given 14.4 millicuries of technetium 99 sestamibi injected intravenously. As per protocol rest gated SPECT images were obtained. Subsequently the patient was given intravenous LexiScan at a dose of 0.4 mg in 5 mL intravenously, followed by flush with normal saline. Subsequently the stress dose of 46.8 millicuries of technetium 99 sestamibi was injected intravenously. As per protocol stress gated images were obtained. NUCLEAR INTERPRETATION: Both raw and processed data were used for interpretation. Visual, qualitative, computer-generated quantitative data was used. There was good myocardial uptake of technetium compound. Motion artifact and soft tissue attenuations were noted. Increased visceral uptake was noted. Transient perfusion defect noted in the LV apex, consistent with ischemia. No definite fixed defect noted. EKG gated imaging showed LV EF at 23 %, rest and stress gated EF similar visually. Diffuse hypokinesia along with apical akinesia noted. T. I D. ratio was 1.24. Lung heart ratio noted to be within normal limits 0.38. No significant extracardiac and abnormal radiotracer activities were noted. RV free wall uptake was noted to be WNL. IMPRESSION: Also refer to comments under nuclear interpretation. Also test results needs to be interpreted in the context of pretest probability. 1. Transient perfusion defect noted in the LV apex consistent with mild ischemia. 2. No definite fixed defect or myocardial infarction/scar noted. 3. EKG gated imaging shows left ventricular ejection fraction of approximately 23 % with diffuse hypokinesia and apical akinesia noted. RECOMMENDATIONS: Aggressive risk factor modification, medical therapy. Clinical correlation with echocardiogram derived ejection fraction. Inability to exercise by itself can lead to increased cardiovascular event risks. Consider cardiology consultation and or follow-up if clinically indicated. I AM AVAILABLE FOR CARDIOLOGY CONSULTATION AND FOLLOWUP IF REQUESTED BY PMD Hector Briseno M.D., BARBP Histologic Technician card checker, Board certified in cardiovascular diseases, Nuclear cardiology, Echocardiography Cardiac CT and cardiac MRI Ph. [phone] [facility]
--- NOTE | 2017-05-31 19:55 | PDOC PROGRESS REPORT ---
Subjective Progress Note for:: 05/31/17 Subjective:: Patient seems to be doing better with gradual improvement. Pt is denying any chest arm or neck discomfort. Patient denying any PND, orthopnea. Patient denied any sustained palpitations, dizziness, syncope, near syncope. Patient denying any fever chills. Patient denying any other significant discomfort. Patient is maintaining sinus rhythm. Review of systems: Rest review of systems negative. Medications: Medications have been reviewed. Physical Exam Vital Signs: Temp Pulse Resp BP Pulse Ox 98.1 F 78 20 114/68 98 05/31/17 16:00 05/31/17 16:00 05/31/17 16:00 05/31/17 16:00 05/31/17 16:00 Intake & Output 05/30/17 05/31/17 06/01/17 06:59 06:59 06:59 Intake Total 1131 1700 1080 Balance 1131 1700 1080 Weight 126.8 kg 126.9 kg Exam: GENERAL: well-nourished and in no acute distress. Alert and oriented x3 HEAD: Atraumatic, normocephalic. EYES: Pupils equal round and reactive to light, extraocular movements intact, sclera anicteric, conjunctiva are normal. ENT: TMs normal, nares patent, oropharynx clear without exudates. Moist mucous membranes. No oral ulcerations or bleeding gums noted NECK: supple without lymphadenopathy. Trachea is central. No cervical or axillary lymphadenopathy noted. Carotids are 2+, JVD WNL LUNGS: Respiration seems nonlabored, no significant accessory muscle action noted. Breath sounds clear to auscultation bilaterally and equal noted. No wheezes rales or rhonchi noted. No significant dullness noted on percussion. CHEST: Palpation of the chest wall shows no significant chest wall tenderness. No other significant abnormalities noted. 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 ABDOMEN: Soft, no significant tenderness appreciated, normoactive bowel sounds. No guarding, no rebound. No rigidity noted . No masses appreciated. EXTREMITIES: Pedal pulses are 1-2+, no calf tenderness noted. No clubbing or cyanosis.trace to 1+ pedal edema noted NEUROLOGICAL: Focused neurological exam showed no significant neurologic deficit. Normal speech, no focal weakness appreciated. PSYCH: Normal mood, normal affect. Judgment and insight within normal limits. SKIN: No significant ecchymosis, rash, ulcerations or signs of pruritus noted. MUSCULOSKELETAL EXAM: No significant joint swelling noted. Results Laboratory Results: 05/30/17 06:40 05/29/17 05/29/17 05/30/17 08:27 14:41 06:40 Troponin I 0.016 0.015 NT-Pro-B Natriuret Pep 386 EKG Comments: Shows sinus rhythm, no sustained tachycardia or bradycardia arrhythmias were noted. Impressions: Carotid Doppler Study 05/29/17 00:00 IMPRESSION: NO HEMODYNAMICALLY SIGNIFICANT STENOSIS. Chest X-Ray 05/29/17 00:03 IMPRESSION: No acute cardiopulmonary findings. Abdomen/Pelvis CTA 05/29/17 01:09 IMPRESSION: No acute findings. NO ABDOMINAL AORTIC ANEURYSM, DISSECTION OR SIGNIFICANT STENOSIS. Chronic desiccated bulge/protrusive disc disease between the L4 and S1 levels. Head CT 05/29/17 01:09 IMPRESSION: NORMAL BRAIN CT WITHOUT CONTRAST. EVIDENCE OF ACUTE STROKE: NO. Assessment & Plan - Diagnosis (1) Near syncope Is this a current diagnosis for this admission?: Yes (2) Cardiomyopathy Qualifiers: Cardiomyopathy type: unspecified Qualified Code(s): I42.9 - Cardiomyopathy , unspecified Is this a current diagnosis for this admission?: Yes (3) Vertigo Is this a current diagnosis for this admission?: Yes (4) CKD (chronic kidney disease) stage 3, GFR 30-59 ml/min Is this a current diagnosis for this admission?: Yes (5) GERD (gastroesophageal reflux disease) Qualifiers: Esophagitis presence: esophagitis presence not specified Qualified Code(s) : K21.9 - Gastro-esophageal reflux disease without esophagitis Is this a current diagnosis for this admission?: Yes (6) Hypertension Qualifiers: Hypertension type: essential hypertension Qualified Code(s): I10 - Essential (primary) hypertension Is this a current diagnosis for this admission?: Yes (7) Chest pain Qualifiers: Ischemic chest pain type: unspecified angina pectoris type Is this a current diagnosis for this admission?: Yes - Notes Notes: Have increased carvedilol to 6.25 p.o. twice daily and have also increased ramipril to 2.5 mg p.o. twice daily. Patient was noted to have positive stress test showing apical ischemia. Review of history shows that patient did complain of chest discomfort on presentation to the hospitalist. Have discussed case with [facility] cardiology and they have accepted the patient as patient is likely to need a heart catheterization as well as electrophysiological consultation. Patient currently on waiting list. Patient was seen multiple times today. Total time exceeds 50 minutes. Near syncope: Patient has severely depressed LVEF based on review of echocardiogram therefore ventricular dysrhythmia is in the differential diagnosis. 2D echo however was technically difficult. Will attempt to get an EF from EKG gated imaging via stress testing. Cardiomyopathy: Patient has severe LV systolic dysfunction. Discussed that there is increased risk of sudden cardiac because of severely reduced LVEF. Medical management is being optimized. Vertigo: This seems to be improving. Chronic kidney disease: This is improved. Gastroesophageal reflux disease: Patient to continue with proton pump inhibitor. Hypertension: Currently stable. Blood pressure on the low side. - Time Time with patient: Greater than 35 minutes - CODE STATUS was discussed, patient remains full code. Surrogate decision-maker unchanged. Multiple medical problems were addressed. More than 50% of the time spent coordinating care, discussing management plans with involved caregivers. Management plans discussed with involved personnels. Medical decision making was of moderate to high complexity, patient's has multiple comorbidities. Medications reviewed and adjusted accordingly: Yes
[2017-05-31] MEDS: ATORVASTATIN CALCIUM 40 MG TABLET PO SCH (21:50)
[2017-05-31] MEDS: FLUCONAZOLE 100 MG TABLET PO SCH (21:50)
[2017-05-31] MEDS: CARVEDILOL 6.25 MG TABLET PO SCH (21:50)
[2017-05-31] MEDS: RAMIPRIL 2.5 MG CAPSULE PO SCH (21:51)
[2017-06-01] MEDS: LANSOPRAZOLE 30 MG TAB.RAP.DR PO SCH (06:17)
--- NOTE | 2017-06-01 07:56 | PDOC PROGRESS REPORT ---
Subjective Progress Note for:: 05/30/17 Subjective:: Patient is a 61 year old male presenting with syncopal episode and now found to have heart failure. Patient states he is feeling better. He is awating his stress test. Physical Exam Vital Signs: Temp Pulse Resp BP Pulse Ox 98.5 F 96 18 112/72 97 05/30/17 20:01 05/30/17 20:01 05/30/17 20:01 05/30/17 20:01 05/30/17 20:01 Intake & Output 05/29/17 05/30/17 05/31/17 06:59 06:59 06:59 Intake Total 1131 1700 Balance 1131 1700 Weight 126.8 kg General appearance: PRESENT: no acute distress, obese Head exam: PRESENT: normocephalic Eye exam: PRESENT: EOMI Mouth exam: PRESENT: moist Neck exam: PRESENT: full ROM. ABSENT: JVD Respiratory exam: PRESENT: clear to auscultation ilan, unlabored. ABSENT: rhonchi, wheezes Cardiovascular exam: PRESENT: RRR, +S1, +S2 GI/Abdominal exam: PRESENT: normal bowel sounds, soft. ABSENT: tenderness Rectal exam: PRESENT: deferred Extremities exam: ABSENT: pedal edema Musculoskeletal exam: PRESENT: full ROM Neurological exam: PRESENT: alert, awake, oriented to person, oriented to place , oriented to time, oriented to situation, CN II-XII grossly intact Psychiatric exam: PRESENT: normal mood Skin exam: PRESENT: intact, warm Results Laboratory Results: 05/30/17 06:40 05/30/17 05/30/17 06:40 06:40 Sodium 141.3 Potassium 4.0 Chloride 106 Carbon Dioxide 25 Anion Gap 10 BUN 19 Creatinine 1.40 H Est GFR ( Amer) > 60 Est GFR (Non-Af Amer) 52 L Glucose 126 H Calcium 8.8 Magnesium 2.2 Vitamin B12 334.0 Folate 10.70 TSH 5.03 H Free T4 1.23 Free T3 pg/mL 3.97 05/29/17 05/29/17 05/30/17 08:27 14:41 06:40 Troponin I 0.016 0.015 NT-Pro-B Natriuret Pep 386 Impressions: Carotid Doppler Study 05/29/17 00:00 IMPRESSION: NO HEMODYNAMICALLY SIGNIFICANT STENOSIS. Chest X-Ray 05/29/17 00:03 IMPRESSION: No acute cardiopulmonary findings. Abdomen/Pelvis CTA 05/29/17 01:09 IMPRESSION: No acute findings. NO ABDOMINAL AORTIC ANEURYSM, DISSECTION OR SIGNIFICANT STENOSIS. Chronic desiccated bulge/protrusive disc disease between the L4 and S1 levels. Head CT 05/29/17 01:09 IMPRESSION: NORMAL BRAIN CT WITHOUT CONTRAST. EVIDENCE OF ACUTE STROKE: NO. Assessment & Plan - Diagnosis (1) Syncope Qualifiers: Syncope type: vasovagal syncope Qualified Code(s): R55 - Syncope and collapse Is this a current diagnosis for this admission?: Yes Plan: Most likely vasovagal due to the fact that patient reports the episode when he attempted to stand up. Echo showed severely reduced EF per cardiology there is concern for possible arrhythmia. Carotid doppler negaitve. (2) CKD (chronic kidney disease) stage 3, GFR 30-59 ml/min Is this a current diagnosis for this admission?: Yes Plan: Appears to be chronic in nature. Patient creatinine stable. Patient was started on a CAMDEN by cardiology. Will continue to monitor renal function. (3) Arthritis or polyarthritis, rheumatoid Qualifiers: Rheumatoid arthritis location: unspecified site Rheumatoid factor presence : unspecified presence Qualified Code(s): M06.9 - Rheumatoid arthritis, unspecified Is this a current diagnosis for this admission?: Yes Plan: Patient follows up with a multiple slide operator and is on chronic steroids and Xeljanz. (4) Hypertension Qualifiers: Hypertension type: essential hypertension Qualified Code(s): I10 - Essential (primary) hypertension Is this a current diagnosis for this admission?: Yes Plan: Patient blood pressures low normal. Patient started on low dose beta jocelin and ACEI. Patient currently asymptomatic. (5) GERD (gastroesophageal reflux disease) Qualifiers: Esophagitis presence: esophagitis presence not specified Qualified Code(s) : K21.9 - Gastro-esophageal reflux disease without esophagitis Is this a current diagnosis for this admission?: Yes Plan: Patient reports a history of "bad heartburn". Continue PPI and as needed Tums. (6) Obesity Qualifiers: Obesity type: due to excess calories Obesity classification: adult class 3 (BMI >= 40) Body mass index: BMI 40.0-44.9 Is this a current diagnosis for this admission?: Yes Plan: Counseled patient on diet and physical activity as tolerated. (7) Fatigue Qualifiers: Fatigue type: chronic, unspecified Qualified Code(s): R53.82 - Chronic fatigue, unspecified Is this a current diagnosis for this admission?: Yes Plan: May be related to his rheumatoid arthritis. B12 low normal. Fatigue may be due to CHF. (8) Systolic heart failure Qualifiers: Heart failure chronicity: unspecified heart failure chronicity Qualified Code(s): I50.20 - Unspecified systolic (congestive) heart failure Is this a current diagnosis for this admission?: Yes Plan: Newly diagnosed. EF severely depressed per cardiology. Cardiology consulted and would like to complete ischemic work out. Patient started on coreg and ACEI. Patient appear euvolemic at the time. (9) Type 2 diabetes mellitus Qualifiers: Diabetes mellitus complication status: with circulatory complication Diabetes mellitus correction insulin use: without correction use Is this a current diagnosis for this admission?: Yes Plan: Patient newly diagnosed. Patient started on low SSI and given diabetic teaching. Patient may be able to take metformin on discharge. - Time Time Spent with patient: 15-24 minutes Anticipated discharge: Home, Other - Patient may require transfer if further evaluation is needed.
--- NOTE | 2017-06-01 08:12 | PDOC PROGRESS REPORT ---
Subjective Progress Note for:: 05/31/17 Subjective:: Patient is a 61 year old male presenting with syncopal episode and now found to have heart failure. Patient feels congested and is asking for nasal spray. He states his SOB is getting better. Physical Exam Vital Signs: Temp Pulse Resp BP Pulse Ox 98.1 F 78 20 114/68 98 05/31/17 16:00 05/31/17 16:00 05/31/17 16:00 05/31/17 16:00 05/31/17 16:00 Intake & Output 05/30/17 05/31/17 06/01/17 06:59 06:59 06:59 Intake Total 1131 1700 1080 Balance 1131 1700 1080 Weight 126.8 kg 126.9 kg General appearance: PRESENT: no acute distress, obese Head exam: PRESENT: normocephalic Eye exam: PRESENT: conjunctiva pink. ABSENT: scleral icterus Ear exam: PRESENT: normal external ear exam Mouth exam: PRESENT: moist, tongue midline Neck exam: ABSENT: carotid bruit, JVD, lymphadenopathy, thyromegaly Respiratory exam: PRESENT: clear to auscultation ilan. ABSENT: rales, rhonchi, wheezes Cardiovascular exam: PRESENT: RRR. ABSENT: diastolic murmur, rubs, systolic murmur Pulses: PRESENT: normal dorsalis pedis pul Vascular exam: PRESENT: normal capillary refill GI/Abdominal exam: PRESENT: normal bowel sounds, soft. ABSENT: distended, guarding, mass, organolmegaly, rebound, tenderness Rectal exam: PRESENT: deferred Extremities exam: PRESENT: full ROM. ABSENT: calf tenderness, clubbing, pedal edema Neurological exam: PRESENT: alert, awake, oriented to person, oriented to place , oriented to time, oriented to situation, CN II-XII grossly intact. ABSENT: motor sensory deficit Psychiatric exam: PRESENT: appropriate affect, normal mood. ABSENT: homicidal ideation, suicidal ideation Skin exam: PRESENT: dry, intact, warm. ABSENT: cyanosis, rash Results Laboratory Results: 05/30/17 06:40 05/29/17 05/29/17 05/30/17 08:27 14:41 06:40 Troponin I 0.016 0.015 NT-Pro-B Natriuret Pep 386 Impressions: Carotid Doppler Study 05/29/17 00:00 IMPRESSION: NO HEMODYNAMICALLY SIGNIFICANT STENOSIS. Chest X-Ray 05/29/17 00:03 IMPRESSION: No acute cardiopulmonary findings. Abdomen/Pelvis CTA 05/29/17 01:09 IMPRESSION: No acute findings. NO ABDOMINAL AORTIC ANEURYSM, DISSECTION OR SIGNIFICANT STENOSIS. Chronic desiccated bulge/protrusive disc disease between the L4 and S1 levels. Head CT 05/29/17 01:09 IMPRESSION: NORMAL BRAIN CT WITHOUT CONTRAST. EVIDENCE OF ACUTE STROKE: NO. Assessment & Plan - Diagnosis (1) Syncope Qualifiers: Syncope type: vasovagal syncope Qualified Code(s): R55 - Syncope and collapse Is this a current diagnosis for this admission?: Yes Plan: Most likely vasovagal due to the fact that patient reports the episode when he attempted to stand up. Patient is not sure if he passed completely out despite saying that on admission. Echo showed severely reduced EF per cardiology there is concern for possible arrhythmia. Carotid doppler negaitve. (2) CKD (chronic kidney disease) stage 3, GFR 30-59 ml/min Is this a current diagnosis for this admission?: Yes Plan: Appears to be chronic in nature. Patient creatinine stable. Continue ACEI started by cardiology. Will continue to monitor renal function. (3) Arthritis or polyarthritis, rheumatoid Qualifiers: Rheumatoid arthritis location: unspecified site Rheumatoid factor presence : unspecified presence Qualified Code(s): M06.9 - Rheumatoid arthritis, unspecified Is this a current diagnosis for this admission?: Yes Plan: Patient follows up with a public health technician and is on chronic steroids and Xeljanz. (4) Hypertension Qualifiers: Hypertension type: essential hypertension Qualified Code(s): I10 - Essential (primary) hypertension Is this a current diagnosis for this admission?: Yes Plan: Patient blood pressures low normal. Continue low dose beta jocelin and ACEI. Patient appears to be tolerating it. (5) GERD (gastroesophageal reflux disease) Qualifiers: Esophagitis presence: esophagitis presence not specified Qualified Code(s) : K21.9 - Gastro-esophageal reflux disease without esophagitis Is this a current diagnosis for this admission?: Yes Plan: Patient reports a history of "bad heartburn". Continue PPI and as needed Tums. (6) Obesity Qualifiers: Obesity type: due to excess calories Obesity classification: adult class 3 (BMI >= 40) Body mass index: BMI 40.0-44.9 Is this a current diagnosis for this admission?: Yes Plan: Counseled patient on diet and physical activity as tolerated. (7) Fatigue Qualifiers: Fatigue type: chronic, unspecified Qualified Code(s): R53.82 - Chronic fatigue, unspecified Is this a current diagnosis for this admission?: Yes Plan: May be related to his rheumatoid arthritis. B12 low normal. TSH normal. Vitamin D is low. Fatigue may be due to CHF. (8) Congestive heart failure Qualifiers: Congestive heart failure type: systolic Congestive heart failure chronicity : unspecified congestive heart failure chronicity Qualified Code(s): I50.20 - Unspecified systolic (congestive) heart failure Is this a current diagnosis for this admission?: Yes Plan: Patient with severe cardiomyopathy may have resulted from DM and HTN. Patient stress test indicative of ischemia. Patient will need to be transferred to another facility for further cardiac intervention. Dr. Briseno Cardiology has spoke to Dr. Richards at [facility]. Awaiting bed. (9) Type 2 diabetes mellitus Qualifiers: Diabetes mellitus complication status: with circulatory complication Diabetes mellitus termite helper insulin use: without mcc use Is this a current diagnosis for this admission?: Yes Plan: Patient newly diagnosed. Patient started on low SSI and given diabetic teaching. Patient may be able to take metformin on discharge. Patient should at least monitor blood glucose daily at home if on oral antihyperglycemic. Explain to patient that he will need a meter. - Time Time Spent with patient: 15-24 minutes Anticipated discharge: [facility] Within: when bed available
[2017-06-01] MEDS: CHOLECALCIFEROL (D3) 1,000 UNIT TABLET PO SCH (11:42)
[2017-06-01] MEDS: CARVEDILOL 6.25 MG TABLET PO SCH ×2 (11:43→21:52)
[2017-06-01] MEDS: PREDNISONE 5 MG TABLET PO SCH (11:44)
[2017-06-01] MEDS: ENOXAPARIN SODIUM INJ 40 MG/0.4 ML DISP.SYRIN SUBCUT SCH (11:45)
[2017-06-01] MEDS: NYSTATIN TOPICAL POWDER 15 GM TP SCH ×2 (11:45→21:53)
[2017-06-01] MEDS: FLUTICASONE NASAL SPRAY 50 MCG/SPRY 120 SPRAY/16 GM NASL SCH (11:50)
[2017-06-01] MEDS: RAMIPRIL 2.5 MG CAPSULE PO SCH ×2 (11:51→21:51)
[2017-06-01] MEDS: ATORVASTATIN CALCIUM 40 MG TABLET PO SCH (21:52)
[2017-06-01] MEDS: FLUCONAZOLE 100 MG TABLET PO SCH (21:53)
[2017-06-02] MEDS: LANSOPRAZOLE 30 MG TAB.RAP.DR PO SCH (06:06)
[2017-06-02] MEDS: FLUTICASONE NASAL SPRAY 50 MCG/SPRY 120 SPRAY/16 GM NASL SCH (09:49)
[2017-06-02] MEDS: CHOLECALCIFEROL (D3) 1,000 UNIT TABLET PO SCH (09:51)
[2017-06-02] MEDS: CARVEDILOL 6.25 MG TABLET PO SCH ×2 (09:51→23:29)
[2017-06-02] MEDS: ENOXAPARIN SODIUM INJ 40 MG/0.4 ML DISP.SYRIN SUBCUT SCH (09:51)
[2017-06-02] MEDS: RAMIPRIL 2.5 MG CAPSULE PO SCH ×2 (09:51→23:29)
[2017-06-02] MEDS: PREDNISONE 5 MG TABLET PO SCH (09:51)
[2017-06-02] MEDS: NYSTATIN TOPICAL POWDER 15 GM TP SCH ×2 (09:52→21:15)
--- NOTE | 2017-06-02 13:11 | PDOC PROGRESS REPORT ---
Subjective Progress Note for:: 06/01/17 Subjective:: Patient was seen on rounds yesterday but forgot to enter a progress report. Patient seems to be doing better with gradual improvement. Pt is denying any chest arm or neck discomfort. Patient denying any PND, orthopnea. Patient denied any sustained palpitations, dizziness, syncope, near syncope. Patient denying any fever chills. Patient denying any other significant discomfort. Nuclear stress test results were again reviewed with the patient. Apical ischemia was noted. In addition EKG gated imaging confirmed low LVEF. Patient waiting to be transferred to [facility]. This is for heart catheterization and electrophysiological consultation. Patient noted to be tolerating increased CAMDEN inhibitor and carvedilol dose. Patient is maintaining sinus rhythm. Review of systems: Rest review of systems negative. Medications: Medications have been reviewed. Physical Exam Vital Signs: Temp Pulse Resp BP Pulse Ox 97.9 F 82 18 119/72 96 06/02/17 08:19 06/02/17 08:19 06/02/17 08:19 06/02/17 08:19 06/02/17 08:19 Intake & Output 06/01/17 06/02/17 06/03/17 06:59 06:59 06:59 Intake Total 570 Balance 570 Weight 126.5 kg Exam: GENERAL: well-nourished and in no acute distress. Alert and oriented x3 HEAD: Atraumatic, normocephalic. EYES: Pupils equal round and reactive to light, extraocular movements intact, sclera anicteric, conjunctiva are normal. ENT: TMs normal, nares patent, oropharynx clear without exudates. Moist mucous membranes. No oral ulcerations or bleeding gums noted NECK: supple without lymphadenopathy. Trachea is central. No cervical or axillary lymphadenopathy noted. Carotids are 2+, JVD WNL LUNGS: Respiration seems nonlabored, no significant accessory muscle action noted. Breath sounds clear to auscultation bilaterally and equal noted. No wheezes rales or rhonchi noted. No significant dullness noted on percussion. CHEST: Palpation of the chest wall shows no significant chest wall tenderness. No other significant abnormalities noted. 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 ABDOMEN: Soft, no significant tenderness appreciated, normoactive bowel sounds. No guarding, no rebound. No rigidity noted . No masses appreciated. EXTREMITIES: Pedal pulses are 1-2+, no calf tenderness noted. No clubbing or cyanosis.trace to 1+ edema noted NEUROLOGICAL: Focused neurological exam showed no significant neurologic deficit. Normal speech, no focal weakness appreciated. PSYCH: Normal mood, normal affect. Judgment and insight within normal limits. SKIN: No significant ecchymosis, rash, ulcerations or signs of pruritus noted. MUSCULOSKELETAL EXAM: No significant joint swelling noted. Results Impressions: Carotid Doppler Study 05/29/17 00:00 IMPRESSION: NO HEMODYNAMICALLY SIGNIFICANT STENOSIS. Chest X-Ray 05/29/17 00:03 IMPRESSION: No acute cardiopulmonary findings. Abdomen/Pelvis CTA 05/29/17 01:09 IMPRESSION: No acute findings. NO ABDOMINAL AORTIC ANEURYSM, DISSECTION OR SIGNIFICANT STENOSIS. Chronic desiccated bulge/protrusive disc disease between the L4 and S1 levels. Head CT 05/29/17 01:09 IMPRESSION: NORMAL BRAIN CT WITHOUT CONTRAST. EVIDENCE OF ACUTE STROKE: NO. Assessment & Plan - Diagnosis (1) Near syncope Is this a current diagnosis for this admission?: Yes (2) Cardiomyopathy Qualifiers: Cardiomyopathy type: unspecified Qualified Code(s): I42.9 - Cardiomyopathy , unspecified Is this a current diagnosis for this admission?: Yes (3) Vertigo Is this a current diagnosis for this admission?: Yes (4) CKD (chronic kidney disease) stage 3, GFR 30-59 ml/min Is this a current diagnosis for this admission?: Yes (5) GERD (gastroesophageal reflux disease) Qualifiers: Esophagitis presence: esophagitis presence not specified Qualified Code(s) : K21.9 - Gastro-esophageal reflux disease without esophagitis Is this a current diagnosis for this admission?: Yes (6) Hypertension Qualifiers: Hypertension type: essential hypertension Qualified Code(s): I10 - Essential (primary) hypertension Is this a current diagnosis for this admission?: Yes - Notes Notes: Patient doing reasonably well. He is on the waiting list for transfer to [facility] for heart catheterization. Hopefully he will go over the weekend. In the meantime will recommend optimizing therapy for his underlying cardiomyopathy and coronary artery disease. Patient has been encouraged to with weight loss, walk slowly in the hallway. 2D echocardiogram results and nuclear stress test results were discussed. Based on patient cardiac risk factors, presentation with syncope and chest pain , feel that patient would need to be transferred for heart catheterization. Opportunity should be taken to gradually optimize his medical management of both cardiomyopathy, underlying medical condition, coronary artery disease etc. while waiting for transfer. This was discussed with hospitalist. Dr. Tashia Hoffman to cover from Sunday. - Time Time with patient: 15-25 minutes Medications reviewed and adjusted accordingly: Yes
[2017-06-02] MEDS: FLUCONAZOLE 100 MG TABLET PO SCH (21:15)
[2017-06-02] MEDS: ATORVASTATIN CALCIUM 40 MG TABLET PO SCH (21:15)
--- NOTE | 2017-06-03 00:18 | PROGRESS NOTE E ---
Progress Note NAME: WARREN MEDEROS : 1955 AGE: 61Y DATE: 06/02/2017 ROOM: 535 SUBJECTIVE: Note that the patient denies any further chest pain or discomfort. There are no symptoms of GERD. There is no PND, orthopnea. There is no vertigo. There are no TIA or CVA symptoms. There is no dizziness, syncope, or near syncope. OBJECTIVE: GENERAL: On examination the patient is morbidly obese, but well-groomed, in no acute distress. VITAL SIGNS: He is afebrile with a temperature of 98.3 degrees Fahrenheit, pulse is 82 beats per minute, blood pressure is 109/65, respirations are 18 per minute, O2 saturations are 94% on room air. HEENT: Head is atraumatic, normocephalic. Eyes: Pupils are equal, round and regular, reactive to light and accommodation. The sclerae are without any icterus. Conjunctivae show no pallor. External ocular movements are normal. ENT is negative. NECK: Supple without lymphadenopathy. There is no goiter. Carotids are equal without any bruits. Trachea is central. JVD is within normal limits. LUNGS: Clear to auscultation and percussion without any wheezing, rales, or rhonchi. CHEST WALL: Palpation does not now any significant chest wall tenderness. HEART: S1 and S2 is heard. There is no S3 gallop. There is no S4 gallop. S1 is of normal intensity. There is a systolic murmur in the left sternal border and the apex in the mitral area. There is no rub. ABDOMEN: Soft, obese, nontender. There is no hepatosplenomegaly. Bowel sounds are well heard. EXTREMITIES: Pedal pulses are slightly reduced. Femorals are slightly reduced. There are no femoral bruits. There is no pedal edema. There is no cyanosis or clubbing. There is no DVT or cellulitis. There is no calf tenderness. CENTRAL NERVOUS SYSTEM: The patient is conscious, awake, alert and oriented x3 with no focal deficits. PSYCHIATRIC: The patient's judgment and insight are intact. The patient's mood is normal. He has a normal affect. SKIN: His skin shows no ecchymosis, petechiae, rashes, or lesions. LABORATORY DATA: The patient's blood sugar is 103. IMPRESSION: 1. NEAR SYNCOPE. 2. CARDIOMYOPATHY WITH SEVERELY REDUCED LV EJECTION FRACTION, ALTHOUGH IT IS NOT A GOOD QUALITY ECHO. 3. VERTIGO. 4. CHRONIC KIDNEY DISEASE. 5. GASTROESOPHAGEAL REFLUX DISEASE WITHOUT EVIDENCE OF ESOPHAGITIS. 6. HYPOTENSION, BLOOD PRESSURE LOW NORMAL. 7. ABNORMAL STRESS TEST WITH THERE BEING A MILD PERFUSION DEFECT IN THE LV APEX. 8. CARDIOMYOPATHY. RECOMMENDATION: Continue current Coreg and ramipril. Watch for any arrhythmias on the monitor. The patient is waiting for a bed in [facility]. Hence I will sign off the case. TIME SPENT: Note that 30 minutes spent on this patient with more than 50% of the time spent on the patient and also reviewing the patient's consultation and other stress test and echo findings. Decision making was of moderate complexity. The patient is a full code. His is the surrogate healthcare decision maker. As recommended the patient might need a MUGA scan or a JESSIKA to better evaluate the left ventricular function. This can be done at [facility]. The patient will need an EP consult. In view of the patient's renal function unless the patient has a lot of chest pain would recommend medical treatment. We will sign off the case. Discussed with the hospitalist, and medications have been reviewed. DICTATING PHYSICIAN: NIKO DICKENS M.D. [id number] ANJUM#: [id number] ID: [id number] JOB#: [id number] ACCT: [id number] cc: >
--- NOTE | 2017-06-03 04:43 | PDOC PROGRESS REPORT ---
Subjective Progress Note for:: 06/01/17 Subjective:: Patient is a 61 year old male presenting with syncopal episode and now found to have heart failure. Patient feels congested and is asking for nasal spray. Patient states he feels pretty good. Physical Exam Vital Signs: Temp Pulse Resp BP Pulse Ox 97.7 F 81 16 106/67 96 06/01/17 21:02 06/01/17 21:02 06/01/17 21:02 06/01/17 21:02 06/01/17 21:02 General appearance: PRESENT: no acute distress, obese Head exam: PRESENT: atraumatic, normocephalic Eye exam: PRESENT: EOMI. ABSENT: scleral icterus Mouth exam: PRESENT: moist Neck exam: ABSENT: carotid bruit, JVD, lymphadenopathy, thyromegaly Respiratory exam: PRESENT: clear to auscultation ilan. ABSENT: rales, rhonchi, wheezes Cardiovascular exam: PRESENT: RRR. ABSENT: diastolic murmur, rubs, systolic murmur Pulses: PRESENT: normal dorsalis pedis pul Vascular exam: PRESENT: normal capillary refill GI/Abdominal exam: PRESENT: normal bowel sounds, soft - protuberant. ABSENT: distended, guarding, mass, organolmegaly, rebound, tenderness Rectal exam: PRESENT: deferred Extremities exam: PRESENT: full ROM. ABSENT: calf tenderness, clubbing, pedal edema Neurological exam: PRESENT: alert, awake, oriented to person, oriented to place , oriented to time, oriented to situation, CN II-XII grossly intact. ABSENT: motor sensory deficit Psychiatric exam: PRESENT: appropriate affect, normal mood. ABSENT: homicidal ideation, suicidal ideation Skin exam: PRESENT: dry, intact, warm. ABSENT: cyanosis, rash Results Impressions: Carotid Doppler Study 05/29/17 00:00 IMPRESSION: NO HEMODYNAMICALLY SIGNIFICANT STENOSIS. Chest X-Ray 05/29/17 00:03 IMPRESSION: No acute cardiopulmonary findings. Abdomen/Pelvis CTA 05/29/17 01:09 IMPRESSION: No acute findings. NO ABDOMINAL AORTIC ANEURYSM, DISSECTION OR SIGNIFICANT STENOSIS. Chronic desiccated bulge/protrusive disc disease between the L4 and S1 levels. Head CT 05/29/17 01:09 IMPRESSION: NORMAL BRAIN CT WITHOUT CONTRAST. EVIDENCE OF ACUTE STROKE: NO. Assessment & Plan - Diagnosis (1) Syncope Qualifiers: Syncope type: vasovagal syncope Qualified Code(s): R55 - Syncope and collapse Is this a current diagnosis for this admission?: Yes Plan: Resolved. Most likely vasovagal due to the fact that patient reports the episode when he attempted to stand up. Echo showed severely reduced EF per cardiology there is concern for possible arrhythmia. Patient received ischemic work up. Cardiology recommend transfer to [facility] for further cardiac work up. (2) CKD (chronic kidney disease) stage 3, GFR 30-59 ml/min Is this a current diagnosis for this admission?: Yes Plan: Stable. Appears to be chronic in nature. Patient creatinine stable. Continue ACEI started by cardiology. Will continue to monitor renal function. (3) Arthritis or polyarthritis, rheumatoid Qualifiers: Rheumatoid arthritis location: unspecified site Rheumatoid factor presence : unspecified presence Qualified Code(s): M06.9 - Rheumatoid arthritis, unspecified Is this a current diagnosis for this admission?: Yes Plan: Continue steroids and Xeljanz. 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 (4) Hypertension Qualifiers: Hypertension type: essential hypertension Qualified Code(s): I10 - Essential (primary) hypertension Is this a current diagnosis for this admission?: Yes Plan: Continue low dose beta jocelin and ACEI. (5) GERD (gastroesophageal reflux disease) Qualifiers: Esophagitis presence: esophagitis presence not specified Qualified Code(s) : K21.9 - Gastro-esophageal reflux disease without esophagitis Is this a current diagnosis for this admission?: Yes Plan: Continue PPI and as needed Tums. (6) Obesity Qualifiers: Obesity type: due to excess calories Obesity classification: adult class 3 (BMI >= 40) Body mass index: BMI 40.0-44.9 Is this a current diagnosis for this admission?: Yes Plan: Counseled patient on diet and physical activity as tolerated. (7) Fatigue Qualifiers: Fatigue type: chronic, unspecified Qualified Code(s): R53.82 - Chronic fatigue, unspecified Is this a current diagnosis for this admission?: Yes Plan: May be related to his rheumatoid arthritis and or CHF. (8) Congestive heart failure Qualifiers: Congestive heart failure type: systolic Congestive heart failure chronicity : unspecified congestive heart failure chronicity Qualified Code(s): I50.20 - Unspecified systolic (congestive) heart failure Is this a current diagnosis for this admission?: Yes (9) Type 2 diabetes mellitus Qualifiers: Diabetes mellitus complication status: with circulatory complication Diabetes mellitus ferry terminal agent insulin use: without snf use Is this a current diagnosis for this admission?: Yes Plan: Patient newly diagnosed. A1c 7.1. Patient started on low SSI and given diabetic teaching. Patient may be able to take metformin on discharge. Patient should at least monitor blood glucose daily at home if on oral antihyperglycemic. Explain to patient that he will need a meter. (10) Vitamin D deficiency Is this a current diagnosis for this admission?: Yes Plan: Patient started on 5,000 IU daily. - Time Time Spent with patient: Less than 15 minutes [facility]: when bed available
--- NOTE | 2017-06-03 04:52 | PDOC PROGRESS REPORT ---
Subjective Progress Note for:: 06/02/17 Subjective:: Patient is a 61 year old male presenting with syncopal episode and now found to have heart failure. Patient feels congested and is asking for nasal spray. Patient overwhelmed with his situation. Patient breaks down and start crying. Reassured patient that we are doing our best to care for him. Physical Exam Vital Signs: Temp Pulse Resp BP Pulse Ox 97.8 F 82 18 109/67 96 06/02/17 20:59 06/02/17 20:59 06/02/17 20:59 06/02/17 20:59 06/02/17 20:59 Intake & Output 06/01/17 06/02/17 06/03/17 06:59 06:59 06:59 Intake Total 570 840 Balance 570 840 Weight 126.5 kg General appearance: PRESENT: no acute distress, obese Head exam: PRESENT: atraumatic, normocephalic Eye exam: PRESENT: EOMI. ABSENT: scleral icterus Mouth exam: PRESENT: moist Neck exam: ABSENT: carotid bruit, JVD, lymphadenopathy, thyromegaly Respiratory exam: PRESENT: clear to auscultation ilan. ABSENT: rales, rhonchi, wheezes Cardiovascular exam: PRESENT: RRR. ABSENT: diastolic murmur, rubs, systolic murmur Pulses: PRESENT: normal dorsalis pedis pul GI/Abdominal exam: PRESENT: normal bowel sounds, soft. ABSENT: distended, guarding, mass, organolmegaly, rebound, tenderness Rectal exam: PRESENT: deferred Extremities exam: PRESENT: full ROM. ABSENT: calf tenderness, clubbing, pedal edema Neurological exam: PRESENT: alert, awake, oriented to person, oriented to place , oriented to time, oriented to situation, CN II-XII grossly intact. ABSENT: motor sensory deficit Psychiatric exam: PRESENT: appropriate affect, normal mood. ABSENT: homicidal ideation, suicidal ideation Skin exam: PRESENT: dry, intact, warm. ABSENT: cyanosis, rash Results Impressions: Carotid Doppler Study 05/29/17 00:00 IMPRESSION: NO HEMODYNAMICALLY SIGNIFICANT STENOSIS. Chest X-Ray 05/29/17 00:03 IMPRESSION: No acute cardiopulmonary findings. Abdomen/Pelvis CTA 05/29/17 01:09 IMPRESSION: No acute findings. NO ABDOMINAL AORTIC ANEURYSM, DISSECTION OR SIGNIFICANT STENOSIS. Chronic desiccated bulge/protrusive disc disease between the L4 and S1 levels. Head CT 05/29/17 01:09 IMPRESSION: NORMAL BRAIN CT WITHOUT CONTRAST. EVIDENCE OF ACUTE STROKE: NO. Assessment & Plan - Diagnosis (1) Syncope Qualifiers: Syncope type: vasovagal syncope Qualified Code(s): R55 - Syncope and collapse Is this a current diagnosis for this admission?: Yes Plan: Resolved. Most likely vasovagal due to the fact that patient reports the episode when he attempted to stand up. Echo showed severely reduced EF per cardiology there is concern for possible arrhythmia. Stress test consistent with ischemia. Cardiology recommend transfer to [facility] for further cardiac work up. (2) CKD (chronic kidney disease) stage 3, GFR 30-59 ml/min Is this a current diagnosis for this admission?: Yes Plan: Stable. Appears to be chronic in nature. Patient creatinine stable. Continue ACEI started by cardiology. Will check BMP. (3) Arthritis or polyarthritis, rheumatoid Qualifiers: Rheumatoid arthritis location: unspecified site Rheumatoid factor presence : unspecified presence Qualified Code(s): M06.9 - Rheumatoid arthritis, unspecified Is this a current diagnosis for this admission?: Yes Plan: Continue steroids and Xeljanz. Patient does have a eligibility specialist. (4) Hypertension Qualifiers: Hypertension type: essential hypertension Qualified Code(s): I10 - Essential (primary) hypertension Is this a current diagnosis for this admission?: Yes Plan: Continue low dose beta jocelin and ACEI. (5) GERD (gastroesophageal reflux disease) Qualifiers: Esophagitis presence: esophagitis presence not specified Qualified Code(s) : K21.9 - Gastro-esophageal reflux disease without esophagitis Is this a current diagnosis for this admission?: Yes (6) Obesity Qualifiers: Obesity type: due to excess calories Obesity classification: adult class 3 (BMI >= 40) Body mass index: BMI 40.0-44.9 Is this a current diagnosis for this admission?: Yes Plan: Counseled patient on diet and physical activity as tolerated. (7) Fatigue Qualifiers: Fatigue type: chronic, unspecified Qualified Code(s): R53.82 - Chronic fatigue, unspecified Is this a current diagnosis for this admission?: Yes Plan: May be related to his rheumatoid arthritis and or CHF. (8) Congestive heart failure Qualifiers: Congestive heart failure type: systolic Congestive heart failure chronicity : unspecified congestive heart failure chronicity Qualified Code(s): I50.20 - Unspecified systolic (congestive) heart failure Is this a current diagnosis for this admission?: Yes Plan: Stable. Patient euvolemic. Patient with severe cardiomyopathy may have resulted from DM and HTN. Patient stress test indicative of ischemia. Dr. Briseno Cardiology has spoke to Dr. Richards at [facility]. Patient on waiting list. (9) Type 2 diabetes mellitus Qualifiers: Diabetes mellitus complication status: with circulatory complication Diabetes mellitus intermediate insulin use: without rodent exterminator use Is this a current diagnosis for this admission?: Yes Plan: Stable. Patient newly diagnosed. A1c 7.1. Patient started on low SSI and given diabetic teaching. Patient may be able to take metformin on discharge. Patient should at least monitor blood glucose daily at home if on oral antihyperglycemic. Explain to patient that he will need a meter. (10) Vitamin D deficiency Is this a current diagnosis for this admission?: Yes Plan: Patient started on 5,000 IU daily. (11) Yeast dermatitis Is this a current diagnosis for this admission?: Yes Plan: On diflucan. Will switch to clotramizole cream. Nystatin does not appear to be working. - Time Time Spent with patient: Less than 15 minutes Medications reviewed and adjusted accordingly: Yes Anticipated discharge: [facility] Within: when bed available - Awating transfer to [facility] under care of Dr. Richards.
[2017-06-03] MEDS: LANSOPRAZOLE 30 MG TAB.RAP.DR PO SCH (06:08)
[2017-06-03] MEDS: ACETAMINOPHEN 325 MG TABLET PO PRN (06:10)
[2017-06-03 07:14] LABS: ANION GAP 9 (5-19); BLOOD UREA NITROGEN 20 mg/dL (7-20); CALCIUM 9.3 mg/dL (8.4-10.2); CARBON DIOXIDE 27 mmol/L (22-30); CHLORIDE 107 mmol/L (98-107); CREATININE RESULT 1.42 mg/dL (0.52-1.25); GLUCOSE 87 mg/dL (75-110); MAGNESIUM 2.5 mg/dL (1.6-2.3); POTASSIUM 4.8 mmol/L (3.6-5.0); SODIUM 143.3 mmol/L (137-145)
[2017-06-03] MEDS: ENOXAPARIN SODIUM INJ 40 MG/0.4 ML DISP.SYRIN SUBCUT SCH (09:52)
[2017-06-03] MEDS: FLUTICASONE NASAL SPRAY 50 MCG/SPRY 120 SPRAY/16 GM NASL SCH (09:52)
[2017-06-03] MEDS: CARVEDILOL 6.25 MG TABLET PO SCH ×2 (09:52→22:41)
[2017-06-03] MEDS: CHOLECALCIFEROL (D3) 1,000 UNIT TABLET PO SCH (09:52)
[2017-06-03] MEDS: RAMIPRIL 2.5 MG CAPSULE PO SCH ×2 (09:52→22:41)
[2017-06-03] MEDS: PREDNISONE 5 MG TABLET PO SCH (09:52)
[2017-06-03] MEDS: INSULIN REG, HUMAN 100 UNIT/ML 3 ML VIAL (PYX) SUBCUT PRN ×2 (11:55→16:31)
[2017-06-03] MEDS: CLOTRIMAZOLE 1% CREAM 15 GM TP SCH ×2 (14:09→22:41)
[2017-06-03] MEDS ORDERED: TRAMADOL HCL 50 MG TABLET PO PRN (14:13)
--- NOTE | 2017-06-03 18:23 | TRANSFER SUMMARY E ---
Transfer Summary NAME: WARREN MEDEROS : 1955 AGE: 61Y ADMITTED: 06/01/2017 TRANSFERRED: 06/03/2017 FINAL DIAGNOSES: 1. Syncope. 2. Abnormal stress test. 3. Cardiomyopathy with severely reduced EF. 4. Morbid obesity with a BMI of 41.2. 5. Chronic kidney disease stage 3. 6. Hypertension. 7. Hyperlipidemia. 8. Diabetes mellitus with a hemoglobin A1c of 7.1. 9. Chronic steroid dependency. 10. Rheumatoid arthritis. 11. Vitamin D deficiency. 12. Yeast dermatitis. HOSPITAL COURSE: The patient is a 61-year-old male who presented to the emergency department after having dizziness and a syncopal episode. the patient stated that he felt like he had an episode of what he thought was passing out. He rolled over and everything began to spin. He became nauseated and vomited at that time. Also at that time he developed cold sweats and chest discomfort. The patient in the emergency department had a CT of the head which was negative for CVA. He was given a fluid bolus and his initial troponins were negative. The patient also had a CT of the abdomen and chest which did not reveal an acute pulmonary embolus. He was brought in initially for observation. The patient's initial troponins remained negative. He underwent a Cardiolite stress test which was found to be mildly positive with perfusion defect in the LV apex. Echocardiogram was performed and Cardiology was consulted. Although of poor quality, it was felt that patient had a severely reduced EF with a grade 2/4 diastolic dysfunction and EF of approximately 20% to 25%. It was felt at that time that due to patient's syncopal episode and positive stress test that he should be transferred out for an ischemic workup. During this hospitalization, the patient was also diagnosed with diabetes mellitus type 2. The patient was started on glimepiride. DISCHARGE MEDICATIONS: 1. Tylenol 650 p.o. q.8 h. p.r.n. 2. Lipitor 40 mg p.o. at bedtime. 3. Tums 500 p.o. t.i.d. p.r.n. 4. Coreg 6.25 p.o. q.12 h. 5. Vitamin D3 5000 units p.o. daily. 6. Clotrimazole cream q.8 h. 7. Sliding scale insulin. 8. Fluconazole 150 mg p.o. at bedtime. 9. Flonase 1 spray each nostril daily. 10. Glimepiride 2 mg p.o. every morning. 11. Prevacid 30 mg p.o. at 6 a.m. 12. Xeljanz 11 mg p.o. daily. 13. Prednisone 5 mg p.o. daily. 14. Ramipril 2.5 mg p.o. q.12 h. 15. Tramadol 50 mg p.o. q.6 h. p.r.n. 16. Nystatin powder. DISCHARGE PHYSICAL EXAMINATION: VITAL SIGNS: Temperature of 97.4, pulse of 69, blood pressure of 123/71, respiratory rate of 18, saturation of 97 on room air. GENERAL: The patient is an obese, well-appearing male who is in no acute respiratory distress. HEENT: Atraumatic, normocephalic. Pupils are equal, round, and reactive to light and accommodation. Extraocular movements are intact. He has no scleral icterus. His mucosa is pink and moist. NECK: Supple. Trachea midline. CHEST: Clear to auscultation bilaterally. CARDIOVASCULAR: Regular rate and rhythm without appreciable murmur, rub or gallop. ABDOMEN: Protuberant but soft, nontender to palpation, nondistended with active bowel sounds. EXTREMITIES: Reveal no cyanosis, clubbing or edema. He has evidence of chronic venostasis. NEUROLOGICAL: Cranial nerves II-XII are intact without focal deficits. He is awake, alert and oriented x3. PSYCHIATRIC: He has a normal mood and affect. SKIN: Reveals acanthosis nigricans. CONDITION AT THE TIME OF DISCHARGE: Stable. DISPOSITION: Discharged to [facility]. The patient has been accepted by Dr. Malone. CODE STATUS: The patient is a FULL CODE. DIET: The patient is on a cardiac carb-4 diet. TIME SPENT: Total time spent with patient including physical examination, coordination of care, and discussion with patient and was 45 minutes of time. DICTATING PHYSICIAN: ROYA LORENZANA M.D. [id number] PHY#: [id number] ID: [id number] JOB#: [id number] ACCT: [id number] cc:ROYA LORENZANA M.D. >
[2017-06-03] MEDS: FLUCONAZOLE 100 MG TABLET PO SCH (22:41)
[2017-06-03] MEDS: ATORVASTATIN CALCIUM 40 MG TABLET PO SCH (22:41)
[2017-06-04 05:33] LABS: ANION GAP 10 (5-19); BLOOD UREA NITROGEN 19 mg/dL (7-20); CARBON DIOXIDE 25 mmol/L (22-30); CHLORIDE 107 mmol/L (98-107); CREATININE RESULT 1.44 mg/dL (0.52-1.25); GLUCOSE 119 mg/dL (75-110)
[2017-06-04 05:41] LABS: POTASSIUM 4.1 mmol/L (3.6-5.0)
[2017-06-04] MEDS: LANSOPRAZOLE 30 MG TAB.RAP.DR PO SCH (06:26)
[2017-06-04] MEDS: CLOTRIMAZOLE 1% CREAM 15 GM TP SCH ×3 (06:29→22:18)
[2017-06-04] MEDS: CARVEDILOL 6.25 MG TABLET PO SCH ×2 (09:10→22:18)
[2017-06-04] MEDS: ENOXAPARIN SODIUM INJ 40 MG/0.4 ML DISP.SYRIN SUBCUT SCH (09:10)
[2017-06-04] MEDS: CHOLECALCIFEROL (D3) 1,000 UNIT TABLET PO SCH (09:11)
[2017-06-04] MEDS: PREDNISONE 5 MG TABLET PO SCH (09:11)
[2017-06-04] MEDS: GLIMEPIRIDE 1 MG TABLET PO SCH (09:12)
[2017-06-04] MEDS: FLUTICASONE NASAL SPRAY 50 MCG/SPRY 120 SPRAY/16 GM NASL SCH (09:13)
[2017-06-04] MEDS: RAMIPRIL 2.5 MG CAPSULE PO SCH ×2 (09:14→22:18)
[2017-06-04] MEDS ORDERED: INFLUENZA ADLT QUAD (36MOS+) 2017-18 VAC 0.5 ML SYR IM PRN (13:00)
--- NOTE | 2017-06-04 17:31 | PDOC PROGRESS REPORT ---
Subjective Progress Note for:: 06/04/17 Subjective:: An addendum to transfer summary dated 06/03/2017. Patient is doing well. He has no new complaints. Patient denies chest pain, shortness of breath, abdominal pain, nausea, vomiting, fevers, chills, diarrhea , constipation, headache, new onset weakness. Reports he does have some dyspnea on exertion. Physical Exam Vital Signs: Temp Pulse Resp BP Pulse Ox 97.6 F 77 20 121/81 95 06/04/17 16:00 06/04/17 16:00 06/04/17 16:00 06/04/17 16:00 06/04/17 16:00 Intake & Output 06/03/17 06/04/17 06/05/17 06:59 06:59 06:59 Intake Total 1240 2400 Balance 1240 2400 Weight 126.5 kg 126.5 kg Exam: General: Morbidly obese, awake alert and orientedx3, no acute respiratory distress HEENT: AT/NC, PERRL, EOMI, oropharynx is moist, pink, no scleral icterus, no conjunctival injection Neck: No JVD, trachea midline Chest: Clear to auscultation bilaterally, no wheezes rhonchi or rales CV: Regular rate and rhythm, normal S1 and S2, no murmur, rub, or gallop Abdomen: Soft, nontender to palpation, nondistended, active bowel sounds; no rebound, rigidity, or guarding Extremities: No cyanosis, clubbing or edema Neuro: Cranial nerves II through XII are grossly intact without focal deficits; awake alert and oriented x3 Psych: Normal mood and affect Skin: Acanthosis nigricans Results Laboratory Results: 06/04/17 04:38 06/04/17 04:38 Sodium 142.0 Potassium 4.1 Chloride 107 Carbon Dioxide 25 Anion Gap 10 BUN 19 Creatinine 1.44 H Est GFR ( Amer) > 60 Est GFR (Non-Af Amer) 50 L Glucose 119 H Calcium 9.0 Impressions: Carotid Doppler Study 05/29/17 00:00 IMPRESSION: NO HEMODYNAMICALLY SIGNIFICANT STENOSIS. Chest X-Ray 05/29/17 00:03 IMPRESSION: No acute cardiopulmonary findings. Abdomen/Pelvis CTA 05/29/17 01:09 IMPRESSION: No acute findings. NO ABDOMINAL AORTIC ANEURYSM, DISSECTION OR SIGNIFICANT STENOSIS. Chronic desiccated bulge/protrusive disc disease between the L4 and S1 levels. Head CT 05/29/17 01:09 IMPRESSION: NORMAL BRAIN CT WITHOUT CONTRAST. EVIDENCE OF ACUTE STROKE: NO. Assessment & Plan - Diagnosis (1) Arthritis or polyarthritis, rheumatoid Qualifiers: Rheumatoid arthritis location: unspecified site Rheumatoid factor presence : unspecified presence Qualified Code(s): M06.9 - Rheumatoid arthritis, unspecified Is this a current diagnosis for this admission?: Yes (2) CKD (chronic kidney disease) stage 3, GFR 30-59 ml/min Is this a current diagnosis for this admission?: Yes (3) Cardiomyopathy Qualifiers: Cardiomyopathy type: unspecified Qualified Code(s): I42.9 - Cardiomyopathy , unspecified Is this a current diagnosis for this admission?: Yes (4) Congestive heart failure Qualifiers: Congestive heart failure type: systolic Congestive heart failure chronicity : unspecified congestive heart failure chronicity Qualified Code(s): I50.20 - Unspecified systolic (congestive) heart failure Is this a current diagnosis for this admission?: Yes (5) GERD (gastroesophageal reflux disease) Qualifiers: Esophagitis presence: esophagitis presence not specified Qualified Code(s) : K21.9 - Gastro-esophageal reflux disease without esophagitis Is this a current diagnosis for this admission?: Yes (6) Near syncope Is this a current diagnosis for this admission?: Yes (7) Systolic heart failure Qualifiers: Heart failure chronicity: unspecified heart failure chronicity Qualified Code(s): I50.20 - Unspecified systolic (congestive) heart failure Is this a current diagnosis for this admission?: Yes (8) Type 2 diabetes mellitus Qualifiers: Diabetes mellitus complication status: with circulatory complication Diabetes mellitus long term care administrator insulin use: without long term care administrator use Is this a current diagnosis for this admission?: Yes (9) Vitamin D deficiency Is this a current diagnosis for this admission?: Yes (10) Yeast dermatitis Is this a current diagnosis for this admission?: Yes - Time Time Spent with patient: 15-24 minutes Anticipated discharge: [facility] Within: when bed available - Plan Summary Plan Summary: Patient is currently discharged doing well waiting for transfer to [facility] for cardiac catheterization and possibly repeat echo.
[2017-06-04] MEDS: ATORVASTATIN CALCIUM 40 MG TABLET PO SCH (22:18)
[2017-06-04] MEDS: FLUCONAZOLE 100 MG TABLET PO SCH (22:18)
[2017-06-05] MEDS ORDERED: LANSOPRAZOLE 30 MG TAB.RAP.DR PO SCH (06:00)
[2017-06-05] MEDS: CLOTRIMAZOLE 1% CREAM 15 GM TP SCH ×2 (06:12→09:51)
[2017-06-05] MEDS: PREDNISONE 5 MG TABLET PO SCH (09:50)
[2017-06-05] MEDS: FLUTICASONE NASAL SPRAY 50 MCG/SPRY 120 SPRAY/16 GM NASL SCH (09:50)
[2017-06-05] MEDS: RAMIPRIL 2.5 MG CAPSULE PO SCH (09:50)
[2017-06-05] MEDS: CHOLECALCIFEROL (D3) 1,000 UNIT TABLET PO SCH (09:50)
[2017-06-05] MEDS: CARVEDILOL 6.25 MG TABLET PO SCH (09:50)
[2017-06-05] MEDS: GLIMEPIRIDE 1 MG TABLET PO SCH (09:51)
[2017-06-05] MEDS: ENOXAPARIN SODIUM INJ 40 MG/0.4 ML DISP.SYRIN SUBCUT SCH (09:52)
[2017-06-05] MEDS ORDERED: DEXTROSE 50%-WATER 25 GM/50 ML DISP.SYRIN IV PRN ×2 (16:25)
[2017-06-05] MEDS ORDERED: DEXTROSE 40% GEL 15 GM TUBE PO PRN ×2 (16:25)
[2017-06-05] MEDS ORDERED: GLUCAGON,HUMAN RECOMB 1 MG INJ SUBCUT PRN (16:25)
--- NOTE | 2017-06-05 16:40 | PDOC PROGRESS REPORT ---
Subjective Progress Note for:: 06/05/17 Subjective:: Patient states that he is doing well today. Spoke to Dr. Briseno who states that he is trying to arrange a LifeVest for patient and had requested that patient have a MUGA scan. Physical Exam Vital Signs: Temp Pulse Resp BP Pulse Ox 98.0 F 79 18 117/72 96 06/05/17 11:35 06/05/17 14:00 06/05/17 11:35 06/05/17 11:35 06/05/17 11:35 Intake & Output 06/04/17 06/05/17 06/06/17 06:59 06:59 06:59 Intake Total 2400 3840 Balance 2400 3840 Weight 126.5 kg 126.5 kg General appearance: PRESENT: no acute distress, well-developed, well-nourished Head exam: PRESENT: atraumatic, normocephalic Eye exam: PRESENT: conjunctiva pink, EOMI. ABSENT: scleral icterus Ear exam: PRESENT: normal external ear exam Mouth exam: PRESENT: moist, tongue midline Neck exam: ABSENT: carotid bruit, JVD, lymphadenopathy, thyromegaly Respiratory exam: PRESENT: clear to auscultation ilan. ABSENT: rales, rhonchi, wheezes Cardiovascular exam: PRESENT: RRR. ABSENT: diastolic murmur, rubs, systolic murmur Pulses: PRESENT: normal dorsalis pedis pul Vascular exam: PRESENT: normal capillary refill GI/Abdominal exam: PRESENT: normal bowel sounds, soft. ABSENT: distended, guarding, mass, organolmegaly, rebound, tenderness Rectal exam: PRESENT: deferred Extremities exam: PRESENT: full ROM. ABSENT: calf tenderness, clubbing, pedal edema Neurological exam: PRESENT: alert, awake, oriented to person, oriented to place , oriented to time, oriented to situation, CN II-XII grossly intact. ABSENT: motor sensory deficit Psychiatric exam: PRESENT: appropriate affect, normal mood. ABSENT: homicidal ideation, suicidal ideation Skin exam: PRESENT: dry, intact, warm. ABSENT: cyanosis, rash Results Laboratory Results: 06/04/17 04:38 Impressions: Carotid Doppler Study 05/29/17 00:00 IMPRESSION: NO HEMODYNAMICALLY SIGNIFICANT STENOSIS. Chest X-Ray 05/29/17 00:03 IMPRESSION: No acute cardiopulmonary findings. Abdomen/Pelvis CTA 05/29/17 01:09 IMPRESSION: No acute findings. NO ABDOMINAL AORTIC ANEURYSM, DISSECTION OR SIGNIFICANT STENOSIS. Chronic desiccated bulge/protrusive disc disease between the L4 and S1 levels. Head CT 05/29/17 01:09 IMPRESSION: NORMAL BRAIN CT WITHOUT CONTRAST. EVIDENCE OF ACUTE STROKE: NO. Assessment & Plan - Diagnosis (1) Cardiomyopathy Qualifiers: Cardiomyopathy type: unspecified Qualified Code(s): I42.9 - Cardiomyopathy , unspecified Is this a current diagnosis for this admission?: Yes Plan: EF of 20-25%: Dr. Briseno arranging LifeVest for patient. Order has been placed for a MUGA scan. Patient is still waiting for transfer to a tertiary facility. (2) Arthritis or polyarthritis, rheumatoid Qualifiers: Rheumatoid arthritis location: unspecified site Rheumatoid factor presence : unspecified presence Qualified Code(s): M06.9 - Rheumatoid arthritis, unspecified Is this a current diagnosis for this admission?: Yes Plan: We will continue current treatment. (3) CKD (chronic kidney disease) stage 3, GFR 30-59 ml/min Is this a current diagnosis for this admission?: Yes Plan: Continue to monitor. (4) Congestive heart failure Qualifiers: Congestive heart failure type: systolic Congestive heart failure chronicity : unspecified congestive heart failure chronicity Qualified Code(s): I50.20 - Unspecified systolic (congestive) heart failure Is this a current diagnosis for this admission?: Yes Plan: Acute on chronic systolic congestive heart failure with EF of 20-25%: We will continue ramipril, carvedilol, Lipitor. Patient has been ordered for MUGA scan in a.m. Dr. Briseno's arranging LifeVest. (5) Fatigue Qualifiers: Fatigue type: chronic, unspecified Qualified Code(s): R53.82 - Chronic fatigue, unspecified Is this a current diagnosis for this admission?: Yes Plan: Most likely secondary to CHF. (6) GERD (gastroesophageal reflux disease) Qualifiers: Esophagitis presence: esophagitis presence not specified Qualified Code(s) : K21.9 - Gastro-esophageal reflux disease without esophagitis Is this a current diagnosis for this admission?: Yes Plan: Prevacid (7) Hypertension Qualifiers: Hypertension type: essential hypertension Qualified Code(s): I10 - Essential (primary) hypertension Is this a current diagnosis for this admission?: Yes Plan: Ramipril, Carvedilol (8) Obesity Qualifiers: Obesity type: due to excess calories Obesity classification: adult class 3 (BMI >= 40) Body mass index: BMI 40.0-44.9 Is this a current diagnosis for this admission?: Yes (9) Syncope Qualifiers: Syncope type: vasovagal syncope Qualified Code(s): R55 - Syncope and collapse Is this a current diagnosis for this admission?: Yes Plan: Most likely secondary Vasovagal Syncope. (10) Type 2 diabetes mellitus Qualifiers: Diabetes mellitus complication status: with circulatory complication Diabetes mellitus chcf insulin use: without chcf use Is this a current diagnosis for this admission?: Yes Plan: Will continue current treatment plan. (11) Vitamin D deficiency Is this a current diagnosis for this admission?: Yes Plan: Will continue on Vit D replacement. (12) Yeast dermatitis Is this a current diagnosis for this admission?: Yes Plan: Diflucan. - Time Time Spent with patient: 25-34 minutes
--- NOTE | 2017-06-05 18:44 | Progress Note ---
Provider Note Provider Note: No new changes to patient's medical care while patient has waited for transfer to tertiary center for further evaluation.
[2017-06-05] MEDS: ACETAMINOPHEN 325 MG TABLET PO PRN (19:43)
[2017-06-05 20:12] VITALS: BP 124/83
--- NOTE | 2017-06-05 20:55 | PDOC PROGRESS REPORT ---
Subjective Progress Note for:: 06/05/17 Subjective:: Reconsulted because patient still has not been transferred. Today I gave cardiac connection another call about need for transfer and that patient would benefit from heart catheterization and also electrophysiological consultation. 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 I however also mentioned to the patient that if we can arrange for LifeVest, he possibly could be discharged with light based on but lack of insurance does make it somewhat complicated to arrange this. Have placed a call with [employer] rep and fax to completed form to the [employer]. They are going to get in touch with the hospital administration/ space planner to see what arrangements can be reached. Patient seems to be doing better with gradual improvement. Pt is denying any chest arm or neck discomfort. Patient denying any PND, orthopnea. Patient denied any sustained palpitations, dizziness, syncope, near syncope. Patient denying any fever chills. Patient denying any other significant discomfort. Nuclear stress test results were again reviewed with the patient. Apical ischemia was noted. In addition EKG gated imaging confirmed low LVEF. Patient waiting to be transferred to [facility]. This is for heart catheterization and electrophysiological consultation. Patient noted to be tolerating increased CAMDEN inhibitor and carvedilol dose. Patient is maintaining sinus rhythm. Review of systems: Rest review of systems negative. Medications: Medications have been reviewed. Physical Exam Vital Signs: Temp Pulse Resp BP Pulse Ox 97.7 F 72 19 124/83 92 06/05/17 20:00 06/05/17 20:00 06/05/17 20:00 06/05/17 20:00 06/05/17 20:00 Intake & Output 06/04/17 06/05/17 06/06/17 06:59 06:59 06:59 Intake Total 2400 3840 330 Balance 2400 3840 330 Weight 126.5 kg 126.5 kg Exam: GENERAL: well-nourished and in no acute distress. Alert and oriented x3 HEAD: Atraumatic, normocephalic. EYES: Pupils equal round and reactive to light, extraocular movements intact, sclera anicteric, conjunctiva are normal. ENT: TMs normal, nares patent, oropharynx clear without exudates. Moist mucous membranes. No oral ulcerations or bleeding gums noted NECK: supple without lymphadenopathy. Trachea is central. No cervical or axillary lymphadenopathy noted. Carotids are 2+, JVD WNL LUNGS: Respiration seems nonlabored, no significant accessory muscle action noted. Breath sounds clear to auscultation bilaterally and equal noted. No wheezes rales or rhonchi noted. No significant dullness noted on percussion. CHEST: Palpation of the chest wall shows no significant chest wall tenderness. No other significant abnormalities noted. 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 ABDOMEN: Soft, no significant tenderness appreciated, normoactive bowel sounds. No guarding, no rebound. No rigidity noted . No masses appreciated. EXTREMITIES: Pedal pulses are 1-2+, no calf tenderness noted. No clubbing or cyanosis.trace to 1+ pedal edema noted NEUROLOGICAL: Focused neurological exam showed no significant neurologic deficit. Normal speech, no focal weakness appreciated. PSYCH: Normal mood, normal affect. Judgment and insight within normal limits. SKIN: No significant ecchymosis, rash, ulcerations or signs of pruritus noted. MUSCULOSKELETAL EXAM: No significant joint swelling noted. Results Laboratory Results: 06/04/17 04:38 EKG Comments: Showed sinus rhythm no significant sustained tachycardia or bradycardia arrhythmias were noted. Impressions: Carotid Doppler Study 05/29/17 00:00 IMPRESSION: NO HEMODYNAMICALLY SIGNIFICANT STENOSIS. Chest X-Ray 05/29/17 00:03 IMPRESSION: No acute cardiopulmonary findings. Abdomen/Pelvis CTA 05/29/17 01:09 IMPRESSION: No acute findings. NO ABDOMINAL AORTIC ANEURYSM, DISSECTION OR SIGNIFICANT STENOSIS. Chronic desiccated bulge/protrusive disc disease between the L4 and S1 levels. Head CT 05/29/17 01:09 IMPRESSION: NORMAL BRAIN CT WITHOUT CONTRAST. EVIDENCE OF ACUTE STROKE: NO. Assessment & Plan - Diagnosis (1) Near syncope Is this a current diagnosis for this admission?: Yes (2) Cardiomyopathy Qualifiers: Cardiomyopathy type: unspecified Qualified Code(s): I42.9 - Cardiomyopathy , unspecified Is this a current diagnosis for this admission?: Yes (3) Vertigo Is this a current diagnosis for this admission?: Yes (4) CKD (chronic kidney disease) stage 3, GFR 30-59 ml/min Is this a current diagnosis for this admission?: Yes (5) GERD (gastroesophageal reflux disease) Qualifiers: Esophagitis presence: esophagitis presence not specified Qualified Code(s) : K21.9 - Gastro-esophageal reflux disease without esophagitis Is this a current diagnosis for this admission?: Yes (6) Hypertension Qualifiers: Hypertension type: essential hypertension Qualified Code(s): I10 - Essential (primary) hypertension Is this a current diagnosis for this admission?: Yes - Notes Notes: Near syncope: Patient has severely depressed LVEF based on review of echocardiogram therefore ventricular dysrhythmia is in the differential diagnosis. EKG gated imaging on stress testing confirms severely low LV systolic dysfunction. Cardiomyopathy: Patient has severe LV systolic dysfunction. Discussed that there is increased risk of sudden cardiac because of severely reduced LVEF. Medical management is being optimized. Patient would benefit from EP consultation, cardiac catheterization. Chest pain: Currently stable. Patient on waiting list for transfer. Have called cardiac connection again. Vertigo: This seems to be improving. Chronic kidney disease: This is improved. Gastroesophageal reflux disease: Patient to continue with proton pump inhibitor. Hypertension: Currently stable. Blood pressure on the low side. Will gradually optimized cardiomyopathy therapy. - Time Time with patient: Greater than 35 minutes - CODE STATUS was discussed, patient remains full code. Surrogate decision-maker unchanged. Multiple medical problems were addressed. More than 50% of the time spent coordinating care, discussing management plans with involved caregivers. Management plans discussed with involved personnels. Medical decision making was of moderate to high complexity, patient's has multiple comorbidities. Significant time spent contacting LifeVest and arranging for LifeVest and also calling cardiac connection at [facility] to update myself as to transfer status. Medications reviewed and adjusted accordingly: Yes
--- NOTE | 2017-06-07 17:46 | PDOC TRANSFER SUMMARY ---
General Admission Date/PCP: 06/01/17 10:40 EMERITA RUSSO MD Admission Date: 06/01/17 Transfer Date: 06/05/17 Accepting Facility: [facility] Resuscitation Status: Full Code - Transfer Diagnosis (1) Cardiomyopathy Is this a current diagnosis for this admission?: Yes Diagnosis Summary: EF of 20-25%. Patient transferred to [facility] for abnormal stress test and need for cardiac cath. (2) Arthritis or polyarthritis, rheumatoid Is this a current diagnosis for this admission?: Yes Diagnosis Summary: Cara home medication. (3) CKD (chronic kidney disease) stage 3, GFR 30-59 ml/min Is this a current diagnosis for this admission?: Yes Diagnosis Summary: Supportive care. (4) Congestive heart failure Is this a current diagnosis for this admission?: Yes Diagnosis Summary: Newly diagnosed systolic congestive heart failure with EF of 20-25%: Patient transferred to [facility] for cardiac cath. (5) Fatigue Is this a current diagnosis for this admission?: Yes Diagnosis Summary: Secondary to newly diagnosed systolic congestive heart failure with EF of 25%: Patient should improve once placed on appropriate medication. (6) GERD (gastroesophageal reflux disease) Is this a current diagnosis for this admission?: Yes Diagnosis Summary: Supportive care (7) Hypertension Is this a current diagnosis for this admission?: Yes Diagnosis Summary: Continue Ramipril and Carvedilol. (8) Obesity Is this a current diagnosis for this admission?: Yes Diagnosis Summary: Encourage Dietary changes. (9) Syncope Is this a current diagnosis for this admission?: Yes Diagnosis Summary: Most likely Secondary to Vasovagal syncope. (10) Type 2 diabetes mellitus Is this a current diagnosis for this admission?: Yes Diagnosis Summary: Will continue current treatment. (11) Vitamin D deficiency Is this a current diagnosis for this admission?: Yes Diagnosis Summary: Will continue Vit D replacement. (12) Yeast dermatitis Is this a current diagnosis for this admission?: Yes Diagnosis Summary: Diflucan - Transfer Medications Home Medications: Fluticasone Propionate [Flonase Nasal Regan 50 Mcg/Regan 16 gm] 1 spray NASL BID 05/29/17 Losartan/Hydrochlorothiazide [Losartan-Hctz 100-25 mg Tab] 100 mg PO DAILY 05/29 Prednisone 5 mg PO DAILY 05/29/17 Tofacitinib Citrate [Xeljanz Xr] 11 mg PO DAILY 05/29/17 - Allergies Allergies/Adverse Reactions: amoxicillin [Amoxicillin] Allergy (Severe, Verified 09/17/15 14:06) Difficulty breathing Hospital Course Hospital Course: She presented to our hospital with complaint of syncope. Patient had a 2D echo that demonstrated an EF of 20-25%. Patient had a stress test that was abnormal. Therefore cardiology recommended the patient be transferred to [facility] for cardiac cath and further evaluation. Due to the leg and transfer patient was being arranged for LifeVest here to our facility and had been scheduled for the next following day for a MUGA test. Patient was transferred to [facility] for continuation of care. Our facility is unable to do cardiac caths. Physical Exam Vital Signs: Temp Pulse Resp BP Pulse Ox 97.7 F 72 19 124/83 92 06/05/17 20:00 06/05/17 20:00 06/05/17 20:00 06/05/17 20:00 06/05/17 20:00 Intake & Output 06/06/17 06/07/17 06/08/17 06:59 06:59 06:59 Intake Total 330 Balance 330 General appearance: PRESENT: no acute distress, well-developed, well-nourished Head exam: PRESENT: atraumatic, normocephalic Eye exam: PRESENT: conjunctiva pink, EOMI. ABSENT: scleral icterus Ear exam: PRESENT: normal external ear exam Mouth exam: PRESENT: moist, tongue midline Neck exam: ABSENT: carotid bruit, JVD, lymphadenopathy, thyromegaly Respiratory exam: PRESENT: clear to auscultation ilan. ABSENT: rales, rhonchi, wheezes Cardiovascular exam: PRESENT: RRR. ABSENT: diastolic murmur, rubs, systolic murmur Pulses: PRESENT: normal dorsalis pedis pul Vascular exam: PRESENT: normal capillary refill GI/Abdominal exam: PRESENT: normal bowel sounds, soft. ABSENT: distended, guarding, mass, organolmegaly, rebound, tenderness Rectal exam: PRESENT: deferred Extremities exam: PRESENT: full ROM. ABSENT: calf tenderness, clubbing, pedal edema Neurological exam: PRESENT: alert, awake, oriented to person, oriented to place , oriented to time, oriented to situation, CN II-XII grossly intact. ABSENT: motor sensory deficit Psychiatric exam: PRESENT: appropriate affect, normal mood. ABSENT: homicidal ideation, suicidal ideation Skin exam: PRESENT: dry, intact, warm. ABSENT: cyanosis, rash Results Laboratory Results: 06/04/17 04:38 Impressions: Carotid Doppler Study 05/29/17 00:00 IMPRESSION: NO HEMODYNAMICALLY SIGNIFICANT STENOSIS. Chest X-Ray 05/29/17 00:03 IMPRESSION: No acute cardiopulmonary findings. Abdomen/Pelvis CTA 05/29/17 01:09 IMPRESSION: No acute findings. NO ABDOMINAL AORTIC ANEURYSM, DISSECTION OR SIGNIFICANT STENOSIS. Chronic desiccated bulge/protrusive disc disease between the L4 and S1 levels. Head CT 05/29/17 01:09 IMPRESSION: NORMAL BRAIN CT WITHOUT CONTRAST. EVIDENCE OF ACUTE STROKE: NO. Plan Time Spent: Less than 30 Minutes
== END 2017-06-05 20:00 | disposition short-term general hospital (02) | DRG 315 ==
LOC: ER 22:38 → INTOOBSV 05-29 07:48 → EH 05-29 07:48 → UNDOADMIN 05-29 08:48 → EH 05-29 08:48 → 5 05-29 12:16 → OBSVTOIN 06-01 10:40
PROVIDERS: ADMIT Pediatrics; ATTEND Pediatrics
DX: I42.9 Cardiomyopathy, unspecified (principal); Z68.41 Body mass index [BMI] 40.0-44.9, adult; I13.0 Hypertensive heart and chronic kidney disease with heart failure and stage 1 through stage 4 chronic kidney disease, or unspecified chronic kidney disease; I50.20 Unspecified systolic (congestive) heart failure; N18.3 Chronic kidney disease, stage 3 (moderate); E11.22 Type 2 diabetes mellitus with diabetic chronic kidney disease; R55 Syncope and collapse; M06.9 Rheumatoid arthritis, unspecified; K21.9 Gastro-esophageal reflux disease without esophagitis; R53.82 Chronic fatigue, unspecified; E55.9 Vitamin D deficiency, unspecified; L30.8 Other specified dermatitis; R07.9 Chest pain, unspecified; E66.01 Morbid (severe) obesity due to excess calories; Z87.891 Personal history of nicotine dependence; Z75.1 Person awaiting admission to adequate facility elsewhere
CPT/HCPCS: 36415; 70450; 71010; 74174; 78452; 80048; 80053; 80061; 81001; 82306; 82533; 82550; 82553; 82607; 82746; 82962; 83036; 83605; 83735; 83880; 84439; 84443; 84481; 84484; 85025; 87040; 93005; 93010; 93017; 93306; 93880; 96360; 99285; A9500; G0378; J0280; J1650; J1815; J2785; J3490; J7030; J7512; Q9969

== ENCOUNTER 2017-12-17 10:13 | Day surgery (SDC) | payer MEDICAID ==
[~2017-12-17 10:13] MED LIST: PROPOFOL INJ 200 MG/20 ML VIAL IV ONE
[2017-12-17] MEDS ORDERED: SIMETHICONE 80 MG TAB.CHEW PO ONE (11:52)
[2017-12-17 12:17] VITALS: BP 104/60
[2017-12-17] MEDS ORDERED: SIMETHICONE 80 MG TAB.CHEW ONE (12:36)
--- NOTE | 2017-12-17 13:13 | Operative Report ---
Operative Report DATE OF SURGERY: 12/17/17 Operative Report: The risks, benefits and alternatives of the procedure including risks of bleeding, perforation requiring surgery are explained to the patient in detail and informed consent is obtained. The patient is taken back to the endoscopy suite and placed in the left, lateral decubital position. Timeout was called. Propofol medications administered. A rectal examination is done which did not reveal any masses, tears or fissures. An Olympus videoscope was inserted into the patient's rectum. The scope was then carefully advanced all the way to the cecum. The cecum was identified by the usual anatomical landmarks including the ileocecal valve as well as the appendiceal office. Photodocumentation is obtained. The scope was then sequentially pulled back via the various segments of the colon including the ascending colon, hepatic flexure, transverse colon, splenic flexure, descending colon and finally into the rectosigmoid portions of the colon. Retroflexion maneuver is performed. The prep on the left side of the colon is not as good. PREOPERATIVE DIAGNOSIS: Colorectal cancer screening. Blood in stool POSTOPERATIVE DIAGNOSIS: Ascending colon polyp sessile status post biopsy. Sigmoid colon polyp removed via snare polypectomy and retrieved. Diverticulosis. Internal hemorrhoids OPERATION: Colonoscopy with snare polypectomy. Colonoscopy with biopsy SURGEON: DARRYL SHRESTHA ANESTHESIA: LMAC TISSUE REMOVED OR ALTERED: As noted above. COMPLICATIONS: None. ESTIMATED BLOOD LOSS: None. INTRAOPERATIVE FINDINGS: As noted above. PROCEDURE: Patient tolerated the procedure well. No immediate postprocedure complications are noted. Patient discharged in good condition. Discharge date 12/17/2017. Discharge diet: Regular. Discharge activity: Regular. 2-3 week follow-up to discuss findings. Patient is instructed to call the office or proceed to the emergency room should there be any further problems or questions. We will went pathology. Due to the inadequate prep at the left side of the colon would proceed with surveillance colonoscopy in 3 years.
== END 2017-12-17 12:25 | disposition home or self-care (01) ==
LOC: END 10:13
PROVIDERS: ATTEND Internal Medicine Gastroenterology
DX: D12.7 Benign neoplasm of rectosigmoid junction (principal); D12.2 Benign neoplasm of ascending colon; K57.30 Diverticulosis of large intestine without perforation or abscess without bleeding; K64.8 Other hemorrhoids; K92.1 Melena; I10 Essential (primary) hypertension; E78.00 Pure hypercholesterolemia, unspecified; E11.9 Type 2 diabetes mellitus without complications; Z87.891 Personal history of nicotine dependence; Z79.84 Long term (current) use of oral hypoglycemic drugs; Z79.899 Other long term (current) drug therapy; Z88.1 Allergy status to other antibiotic agents
CPT/HCPCS: 45380; 45385; 82962; 88305 ×2; J2704; 812

== ENCOUNTER 2018-09-20 13:44 | Emergency (ER) | payer SELFPAY ==
[2018-09-20] MEDS ORDERED: ONDANSETRON 4 MG TAB.RAPDIS PO ONE (14:59)
--- NOTE | 2018-09-20 14:59 | ER Document Report ---
ED Medical Screen (RME) - General Chief Complaint: Vomiting/Diarrhea Stated Complaint: DIARRHEA Time Seen by Provider: 09/20/18 14:53 Primary Care Provider: EMERITA RUSSO MD [Primary Care Provider] - Follow up as needed Mode of Arrival: Ambulatory Information source: Patient Notes: 62-year-old male presents to ED for complaint of nausea vomiting and diarrhea si nce yesterday. States he felt febrile last night but did not have a thermometer. States she is not able to keep anything down. Patient states he does have a history of diabetes CHF has a defibrillator has high blood pressure cholesterol rheumatoid arthritis of benign prostate hyperplasia. He states he is feeling very short of breath and nauseated. He is alert oriented walks with a even steady gait. Blood work urine fingerstick chest x-ray and EKG have been ordered. Saline lock has been ordered. I have consulted with the charge nurse to get him first available bed. I have greeted and performed a rapid initial assessment of this patient. A comprehensive ED assessment and evaluation of the patient, analysis of test results and completion of medical decision making process will be conducted by an additional ED providers. TRAVEL OUTSIDE OF THE [place] IN LAST 30 DAYS: No - Related Data Allergies/Adverse Reactions: amoxicillin [Amoxicillin] Allergy (Severe, Verified 09/20/18 13:46) Difficulty breathing Past Medical History - Past Medical History Cardiac Medical History: Reports: Hx Hypertension - ON MEDICATION Denies: Hx Coronary Artery Disease, Hx Heart Attack Pulmonary Medical History: Denies: Hx Asthma, Hx Bronchitis, Hx COPD, Hx Pneumonia Neurological Medical History: Denies: Hx Cerebrovascular Accident, Hx Seizures Renal/ Medical History: Denies: Hx Peritoneal Dialysis GI Medical History: Reports: Hx Gastroesophageal Reflux Disease, Hx Ulcer - YEARS AGO. Denies: Hx Hepatitis, Hx Hiatal Hernia Musculoskeltal Medical History: Denies Hx Arthritis Psychiatric Medical History: Denies: Hx Depression Infectious Medical History: Denies: Hx Hepatitis Past Surgical History: Reports: Hx Appendectomy. Denies: Hx Open Heart Surgery, Hx Pacemaker - Immunizations Hx Diphtheria, Pertussis, Tetanus Vaccination: Yes - UTD History of Influenza Vaccine for 05/2017 - 10/2017 Season: No Influenza Administration Date for 05/2017 - 10/2017 Season: 05/20/17 Physical Exam - Vital signs Vitals: Temp Pulse Resp BP Pulse Ox 98.1 F 129 H 18 112/67 93 09/20/18 13:56 09/20/18 13:56 09/20/18 13:56 09/20/18 13:56 09/20/18 13:56 Course - Vital Signs Vital signs: Temp Pulse Resp BP Pulse Ox 98.1 F 129 H 18 112/67 93 09/20/18 13:56 09/20/18 13:56 09/20/18 13:56 09/20/18 13:56 09/20/18 13:56 Doctor's Discharge - Discharge Referrals: EMERITA RUSSO MD [Primary Care Provider] - Follow up as needed
[2018-09-20 15:46] LABS: HEMATOCRIT 47.8 % (37.9-51.0); MEAN CORPUSCULAR HEMOGLOBIN 30.4 pg (27.0-33.4); MEAN CORPUSCULAR HGB CONC 33.5 g/dL (32.0-36.0); MEAN CORPUSCULAR VOLUME 91 fl (80-97); PLATELET COUNT 234 10^3/uL (150-450); RED BLOOD COUNT 5.27 10^6/uL (4.35-5.55); WHITE BLOOD COUNT 10.7 10^3/uL (4.0-10.5)
--- NOTE | 2018-09-20 15:56 | RADIOLOGY REPORT (SQ) ---
EXAM DESCRIPTION: CHEST 2 VIEWS COMPLETED DATE/TIME: 09/20/2018 3:47 pm REASON FOR STUDY: short of breath chf COMPARISON: 05/28/2017 EXAM PARAMETERS: NUMBER OF VIEWS: two views TECHNIQUE: Digital Frontal and Lateral radiographic views of the chest acquired. RADIATION DOSE: NA LIMITATIONS: none FINDINGS: LUNGS AND PLEURA: There is minimal bibasilar atelectasis. No consolidation. No effusions or pneumothorax. MEDIASTINUM AND HILAR STRUCTURES: No masses or contour abnormalities. HEART AND VASCULAR STRUCTURES: Heart normal size. No evidence for failure. BONES: No acute findings. HARDWARE: Battery pack and leads are in place. OTHER: No other significant finding. IMPRESSION: Minimal basilar atelectasis. No consolidation or failure. TECHNICAL DOCUMENTATION: JOB ID: [id number] [employer]- All Rights Reserved Reading location - IP/workstation name: [email or web address]
[2018-09-20 16:06] LABS: ABSOLUTE LYMPHOCYTES# (MANUAL) 0.4 10^3/uL (0.5-4.7); ABSOLUTE NEUTROPHILS# (MANUAL) 9.3 10^3/uL (1.7-8.2); BASOPHILS % (MANUAL) 0 % (0-2); EOSINOPHILS % (MANUAL) 0 % (0-6); LYMPHOCYTES % (MANUAL) 4 % (13-45); MONOCYTES % (MANUAL) 9 % (3-13); SEGMENTED NEUTROPHILS % (MAN) 87 % (42-78); TOTAL CELLS COUNTED 100
[2018-09-20 16:07] LABS: TOXIC VACUOLATION PRESENT
[2018-09-20 16:08] LABS: ANISOCYTOSIS SLIGHT; OVALOCYTES SLIGHT; PLATELET COMMENT ADEQUATE; PLATELET LARGE PRESENT; POLYCHROMASIA SLIGHT; SCHISTOCYTES SLIGHT
--- NOTE | 2018-09-20 17:06 | ER Document Report ---
Addendum entered and electronically signed by ONOFRE SCHMITZ NP 09/21/18 17:43: Course - Re-evaluation Re-evalutation: Repeat troponin was negative. BNP within normal limits. Patient's blood pressure did come up after administration of 500 cc bolus. Patient's heart rate did remain in the low 100s however patient reports he is feeling much better. Patient was given p.o. trial in which he drank a 20 ounce bottle of Gatorade without difficulty. Patient will be discharged home with likely viral illness, he was given strict ED return precautions. - Vital Signs Vital signs: Temp Pulse Resp BP Pulse Ox 100.1 F 129 H 21 H 102/66 95 09/20/18 22:46 09/20/18 13:56 09/20/18 22:01 09/20/18 22:01 09/20/18 22:01 - Laboratory Result Diagrams: 09/20/18 15:20 09/20/18 16:55 Laboratory results interpreted by me: 09/20/18 09/20/18 09/20/18 15:11 15:20 16:55 WBC 10.7 H RDW 15.0 H Seg Neuts % (Manual) 87 H Lymphocytes % (Manual) 4 L Abs Neuts (Manual) 9.3 H Abs Lymphs (Manual) 0.4 L BUN 24 H Creatinine 1.51 H Est GFR ( Amer) 57 L Est GFR (Non-Af Amer) 47 L Glucose 121 H POC Glucose 123 H Original Note: ED General - General Mode of Arrival: Ambulatory TRAVEL OUTSIDE OF THE U.S. IN LAST 30 DAYS: No <ROLANDO DEL TORO - Last Filed: 09/20/18 18:28> <ONOFRE SCHMITZ - Last Filed: 09/20/18 22:28> - General Chief Complaint: Vomiting/Diarrhea Stated Complaint: DIARRHEA Time Seen by Provider: 09/20/18 14:53 Primary Care Provider: EMERITA RUSSO MD [NO LOCAL MD] - Follow up as needed Notes: Pleasant 62-year-old male with history of HFrEF status post AICD placement, diabetes mellitus presents to the emergency department with upset stomach, right-sided chest pain, and diarrhea that started at 0300 this morning. Said it started with vomiting at 3:00, improved slightly but then he got worse and v omited an additional 6-8 times. He also complains of weakness and shortness of breath. His states that she felt a tactile fever, he complains of chills, complains of nausea. He did take some Tylenol this morning but vomited up immediately. 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 He denies any headache, earache, sore throat, dizziness, lightheadedness, dyspnea on exertion, substernal chest pain. (ROLANDO DEL TORO) - Related Data Allergies/Adverse Reactions: amoxicillin [Amoxicillin] Allergy (Severe, Verified 09/20/18 13:46) Difficulty breathing Past Medical History - General Information source: Patient - Social History Smoking Status: Never Smoker Chew tobacco use (# tins/day): No Frequency of alcohol use: None Drug Abuse: None Family History: CAD, DM, Hypertension Patient has suicidal ideation: No Patient has homicidal ideation: No - Past Medical History Cardiac Medical History: Reports: Hx Hypertension - ON MEDICATION Denies: Hx Coronary Artery Disease, Hx Heart Attack Pulmonary Medical History: Denies: Hx Asthma, Hx Bronchitis, Hx COPD, Hx Pneumonia Neurological Medical History: Denies: Hx Cerebrovascular Accident, Hx Seizures Renal/ Medical History: Denies: Hx Peritoneal Dialysis GI Medical History: Reports: Hx Gastroesophageal Reflux Disease, Hx Ulcer - YE ARS AGO. Denies: Hx Hepatitis, Hx Hiatal Hernia Musculoskeletal Medical History: Denies Hx Arthritis Psychiatric Medical History: Denies: Hx Depression Infectious Medical History: Denies: Hx Hepatitis Past Surgical History: Reports: Hx Appendectomy. Denies: Hx Open Heart Surgery, Hx Pacemaker - Immunizations Hx Diphtheria, Pertussis, Tetanus Vaccination: Yes - UTD Hx Pneumococcal Vaccination: 05/20/17 <ROLANDO DEL TORO - Last Filed: 09/20/18 18:28> Review of Systems - Review of Systems Constitutional: See HPI EENT: See HPI Cardiovascular: See HPI Respiratory: See HPI Gastrointestinal: See HPI Genitourinary: No symptoms reported Male Genitourinary: No symptoms reported Musculoskeletal: No symptoms reported Skin: No symptoms reported Hematologic/Lymphatic: No symptoms reported Neurological/Psychological: See HPI <ROLANDO DEL TORO - Last Filed: 09/20/18 18:28> Physical Exam <ROLANDO DEL TORO - Last Filed: 09/20/18 18:28> - Vital signs Vitals: Temp Pulse Resp BP Pulse Ox 98.1 F 129 H 18 112/67 93 09/20/18 13:56 09/20/18 13:56 09/20/18 13:56 09/20/18 13:56 09/20/18 13:56 - Notes Notes: PHYSICAL EXAMINATION: Reviewed vital signs and charting by RN GENERAL: Alert, interacts well. No acute distress. HEAD: Normocephalic, atraumatic. EYES: Pupils equal, round, and reactive to light. Extraocular movements intact. ENT: Oral mucosa moist, tongue midline. NECK: Full range of motion. Supple. Trachea midline. LUNGS: Clear to auscultation bilaterally, no wheezes, rales, or rhonchi. No respiratory distress. HEART: Sinus tachycardia. No murmur. No LE pitting edema ABDOMEN: soft, non-tender. Non-distended. Bowel sounds present in all 4 quadrants. EXTREMITIES: Moves all 4 extremities spontaneously. No edema, No cyanosis NEUROLOGICAL: Alert and oriented. Normal speech. PSYCH: Normal affect, normal mood. SKIN: Warm, dry, normal turgor. No rashes or lesions noted. (ROLANDO DEL TORO) Course - Laboratory Result Diagrams: 09/20/18 15:20 09/20/18 16:55 <ROLANDO DEL TORO - Last Filed: 09/20/18 18:28> - Laboratory Result Diagrams: 09/20/18 15:20 09/20/18 16:55 <ONOFRE SCHMITZ - Last Filed: 09/20/18 22:28> - Re-evaluation Re-evalutation: 09/20/18 17:06 Pleasant 62-year-old male here for vomiting and diarrhea since 0300 this patient is concerned because this happened when he was last diagnosed with HFrEF. Patient entered the emergency room tachycardic at 129. 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 Discussed case with Dr. Osullivan. Labs are still pending, CBC is completed and has a very mild leukocytosis. 09/20/18 18:29 Initial troponin was negative. Chest x-ray just showed mild bilateral basilar atelectasis. Labs overall unremarkable. Last vitals pulse was 104 and BP was 92/50. (ROLANDO DEL TORO) - Vital Signs Vital signs: Temp Pulse Resp BP Pulse Ox 98.5 F 129 H 20 108/66 95 09/20/18 19:41 09/20/18 13:56 09/20/18 20:31 09/20/18 20:31 09/20/18 20:31 - Laboratory Laboratory results interpreted by me: 09/20/18 09/20/18 09/20/18 15:11 15:20 16:55 WBC 10.7 H RDW 15.0 H Seg Neuts % (Manual) 87 H Lymphocytes % (Manual) 4 L Abs Neuts (Manual) 9.3 H Abs Lymphs (Manual) 0.4 L BUN 24 H Creatinine 1.51 H Est GFR ( Amer) 57 L Est GFR (Non-Af Amer) 47 L Glucose 121 H POC Glucose 123 H Discharge <ROLANDO DEL TORO - Last Filed: 09/20/18 18:28> <ONOFRE SCHMITZ - Last Filed: 09/20/18 22:28> - Discharge Clinical Impression: Nausea vomiting and diarrhea Condition: Stable Disposition: HOME, SELF-CARE Instructions: Viral Syndrome ([facility]), Vomiting ([facility]), Diarrhea, Nonspecific ([facility]), Intravenous (IV) Fluids ([facility]) Additional Instructions: All of the testing to include lab work, chest x-ray and urinalysis were unremarkable. The nausea, vomiting and diarrhea are most likely being caused by a virus. Please drink plenty of fluids over the next several days. Take Tylenol or ibuprofen for any fevers. Use the Zofran as directed for nausea and vomiting. Please return to the emergency department if you develop worsening symptoms such as fever that is not responding to Tylenol or ibuprofen, weakness, you develop abdominal pain or any other symptom that is concerning to you. We will be happy to reevaluate you. I would like you to be rechecked by primary ca re in the next 48 hours. Please call them to schedule an appointment. Prescriptions: Ondansetron [Zofran Odt 4 mg Tablet] 1 - 2 tab PO Q4H PRN #15 tab.rapdis PRN Reason: For Nausea/Vomiting Referrals: EMERITA RUSSO MD [NO LOCAL MD] - Follow up as needed
[2018-09-20] MEDS ORDERED: NORMAL SALINE 1000 ML 500 ML IV ONE (17:13)
[2018-09-20 17:14] LABS: APPEARANCE,URINE SLIGHTLY-CLOUDY; BILIRUBIN,URINE NEGATIVE (NEGATIVE); COLOR,URINE YELLOW; GLUCOSE, URINE NEGATIVE (NEGATIVE); KETONES,URINE NEGATIVE (NEGATIVE); LEUKOCYTE ESTERASE,URINE NEGATIVE (NEGATIVE); NITRITE,URINE NEGATIVE (NEGATIVE); PROTEIN,URINE NEGATIVE (NEGATIVE); URINE SPECIFIC GRAVITY 1.025; UROBILINOGEN,URINE NEGATIVE mg/dL (<2.0)
[2018-09-20 17:32] LABS: ALANINE AMINOTRANSFERASE 36 U/L (21-72); ALBUMIN 4.2 g/dL (3.5-5.0); ALKALINE PHOSPHATASE 82 U/L (38-126); ANION GAP 9 (5-19); ASPARTATE AMINO TRANSFERASE 23 U/L (17-59); BILIRUBIN,DIRECT 0.1 mg/dL (0.0-0.4); BILIRUBIN,TOTAL 1.2 mg/dL (0.2-1.3); BLOOD UREA NITROGEN 24 mg/dL (7-20); CALCIUM 9.1 mg/dL (8.4-10.2); CARBON DIOXIDE 27 mmol/L (22-30); CHLORIDE 105 mmol/L (98-107); CREATINE KINASE 75 U/L (55-170); GLUCOSE 121 mg/dL (75-110); POTASSIUM 4.4 mmol/L (3.6-5.0); SODIUM 141.2 mmol/L (137-145); TOTAL PROTEIN 7.2 g/dL (6.3-8.2)
[2018-09-20 17:41] LABS: CREATINE KINASE MB 0.34 ng/mL (<4.55)
[2018-09-20 17:46] LABS: TROPONIN I < 0.012 ng/mL
--- NOTE | 2018-09-20 18:27 | EKG REPORT ---
SEVERITY:- ABNORMAL ECG - ATRIAL-SENSED VENTRICULAR-PACED RHYTHM : Confirmed by: Juan Mattson MD 20-Sep-2018 18:26:00
[2018-09-20] MEDS ORDERED: ONDANSETRON HCL INJ/PF 4 MG/2 ML SDV IV ONE (19:25)
[2018-09-20 21:14] LABS: A TYPE INFLUENZA AG NEGATIVE (NEGATIVE); B INFLUENZA AG NEGATIVE (NEGATIVE)
[2018-09-20] MEDS ORDERED: ONDANSETRON ODT 4 MG TAB (6 TAB/ER DISP) PO PRN (22:29)
[2018-09-20] MEDS ORDERED: ACETAMINOPHEN 325 MG TABLET PO ONE (22:29)
[2018-09-20 22:48] VITALS: BP 102/66
== END 2018-09-20 22:48 | disposition home or self-care (01) ==
LOC: ER 13:44
DX: R11.2 Nausea with vomiting, unspecified (principal); R19.7 Diarrhea, unspecified; E11.9 Type 2 diabetes mellitus without complications; R07.9 Chest pain, unspecified; R53.1 Weakness; R06.02 Shortness of breath; R50.9 Fever, unspecified; I10 Essential (primary) hypertension; Z79.899 Other long term (current) drug therapy
CPT/HCPCS: 93005; 99284; 96361; 96374; 36415; 82553; 82962; 82550; 85025; 80053; 81001; 84484; 83605; 87804; 83880; 71046; 93010; S0119; J2405; J7030

== ENCOUNTER 2019-08-28 18:38 | Emergency (ER) | payer OTHER ==
--- NOTE | 2019-08-28 19:07 | ER Document Report ---
ED GI/ - General TRAVEL OUTSIDE OF THE U.S. IN LAST 30 DAYS: No <JENNIFER OLIVIA - Last Filed: 08/28/19 19:07> <NAY QUAN - Last Filed: 08/29/19 06:26> - General Chief Complaint: Abdominal Pain Stated Complaint: ABDOMINAL PAIN Time Seen by Provider: 08/28/19 18:52 Notes: CHIEF COMPLAINT: Lower abdominal pain intermittently for 5 days HPI: 63-year-old male with past medical history of CHF, hypertension, defibrillator placement, appendectomy and diverticulosis presenting for 5 days of intermittent lower abdominal pain. Patient has increased discomfort when straining to urinate or move his bowels. Today the pain worsened and he began having increased discomfort when riding in his truck and hitting bumps. No fever. No vomiting. Denies nausea. Has been moving his bowels. No prior history of similar discomfort. No dysuria. No penile or testicular pain. ROS: See HPI - all other systems were reviewed and are otherwise negative Constitutional: no fever Eyes: no drainage, no blurred vision ENT: no runny nose, no sore throat Cardiovascular: no chest pain Resp: no SOB, no cough GI: no vomiting, no diarrhea, + abdominal pain : no dysuria Integumentary: no rash Allergy: no hives Musculoskeletal: no extremity pain or swelling Neurological: no numbness/tingling, no weakness MEDICATIONS: I agree with the patient medications as charted by the RN. ALLERGIES: I agree with the allergies as charted by the RN. PAST MEDICAL HISTORY/PAST SURGICAL HISTORY: Reviewed and agree as charted by RN. SOCIAL HISTORY: Reviewed and agree as charted by RN. FAMILY HISTORY: No significant familial comorbid conditions directly related to patient complaint EXAM: Reviewed vital signs as charted by RN. CONSTITUTIONAL: Alert and oriented and responds appropriately to questions. Well-appearing; well-nourished, mild distress secondary to discomfort HEAD: Normocephalic; atraumatic EYES: PERRL; Conjunctivae clear, sclerae non-icteric ENT: normal nose; no rhinorrhea; moist mucous membranes; pharynx without lesions noted NECK: Supple without meningismus; non-tender; no cervical lymphadenopathy, no masses CARD: RRR; no murmurs, no clicks, no rubs, no gallops; symmetric distal pulses RESP: Normal chest excursion without splinting or tachypnea; breath sounds clear and equal bilaterally; no wheezes, no rhonchi, no rales, pulse oximetry ABD/GI: Obese, normal bowel sounds; non-distended; soft, there is mild tenderness in the right lower quadrant and suprapubic region on palpation, no rebound, no guarding; no palpable organomegaly or masses. BACK: The back appears normal and is non-tender to palpation, there is no CVA tenderness EXT: Normal ROM in all joints; non-tender to palpation; no cyanosis, no effusions, no edema SKIN: Normal color for age and race; warm; dry; good turgor; no acute lesions noted NEURO: Moves all extremities equally; Motor and sensory function intact PSYCH: The patient's mood and manner are appropriate. Grooming and personal hygiene are appropriate. MDM: 63-year-old male with diverticular history presenting for lower abdominal pain intermittent in nature over the last 4 to 5 days. No history of diverticulitis, does have a infection prevention specialist he cannot remember the name of that did a colonoscopy 2 years ago that saw diverticulosis. Does have prior history of appendectomy as a child. He is not febrile. He is not significantly tachycardic, low suspicion for sepsis. Screening labs ordered, will order CT abdomen pelvis to evaluate for possible diverticulitis, diverticular abscess. Report will be given to oncoming shift the following disposition (JENNIFER OLIVIA) - Related Data Allergies/Adverse Reactions: amoxicillin [Amoxicillin] Allergy (Severe, Verified 09/20/18 13:46) Difficulty breathing Past Medical History - Social History Family History: CAD, DM, Hypertension - Past Medical History Cardiac Medical History: Reports: Hx Hypertension - ON MEDICATION Denies: Hx Coronary Artery Disease, Hx Heart Attack Pulmonary Medical History: Denies: Hx Asthma, Hx Bronchitis, Hx COPD, Hx Pneumonia Neurological Medical History: Denies: Hx Cerebrovascular Accident, Hx Seizures Renal/ Medical History: Denies: Hx Peritoneal Dialysis GI Medical History: Reports: Hx Gastroesophageal Reflux Disease, Hx Ulcer - YEARS AGO. Denies: Hx Hepatitis, Hx Hiatal Hernia Musculoskeletal Medical History: Denies Hx Arthritis Psychiatric Medical History: Denies: Hx Depression Infectious Medical History: Denies: Hx Hepatitis Past Surgical History: Reports: Hx Appendectomy. Denies: Hx Open Heart Surgery, Hx Pacemaker - Immunizations Hx Diphtheria, Pertussis, Tetanus Vaccination: Yes - UTD Hx Pneumococcal Vaccination: 05/20/17 <JENNIFER OLIVIA - Last Filed: 08/28/19 19:07> - Social History Smoking Status: Never Smoker <NAY QUAN - Last Filed: 08/29/19 06:26> Physical Exam - Vital signs Vitals: Temp Pulse Resp BP Pulse Ox 97.6 F 74 18 123/82 95 08/28/19 18:48 08/28/19 18:48 08/28/19 18:48 08/28/19 18:48 08/28/19 18:48 Course - Laboratory Result Diagrams: 08/28/19 19:25 08/28/19 19:25 <NAY QUAN - Last Filed: 08/29/19 06:26> - Vital Signs Vital signs: Temp Pulse Resp BP Pulse Ox 97.5 F 75 20 111/65 94 08/28/19 22:35 08/28/19 22:35 08/28/19 22:35 08/28/19 22:35 08/28/19 22:35 - Laboratory Laboratory results interpreted by me: 08/28/19 08/28/19 08/28/19 19:20 19:25 19:25 RDW 14.8 H BUN 27 H Creatinine 1.93 H Est GFR ( Amer) 43 L Est GFR (MDRD) Non-Af 35 L Urine Blood SMALL H Discharge <JENNIFER OLIVIA - Last Filed: 08/28/19 19:07> <NAY QUAN - Last Filed: 08/29/19 06:26> - Discharge Clinical Impression: Diverticulitis of sigmoid colon, Lower abdominal pain Condition: Stable Disposition: HOME, SELF-CARE Instructions: Oral Narcotic Medication ([facility]) Additional Instructions: Your work-up and imaging indicates diverticulitis at the end of your large intestine. This is an infection/inflammation. Take the antibiotics as prescribed to completion, I recommend clear fluids for the first 1 to 2 days, then start with bland food and progress from there. Take the provided pain and nausea medications if needed. Follow-up closely with your primary care provider within the next several days. Return if you worsen including vomiting, severe worsening pain, bloody stools, fever, or any other concerning symptoms. Prescriptions: Ciprofloxacin HCl [Cipro 500 mg Tablet] 500 mg PO BID 7 Days #14 tablet Metronidazole [Flagyl 500 mg Tablet] 500 mg PO TID 7 Days #21 tablet Promethazine HCl [Phenergan 25 mg Tablet] 25 mg PO Q6H PRN #15 tablet PRN Reason:
[2019-08-28 19:40] LABS: ABSOLUTE BASOPHILS # (AUTO) 0.1 10^3/uL (0.0-0.2); ABSOLUTE EOSINOPHILS # (AUTO) 0.1 10^3/uL (0.0-0.6); ABSOLUTE LYMPHOCYTES (AUTO) 2.4 10^3/uL (0.5-4.7); ABSOLUTE MONOCYTES (AUTO) 0.9 10^3/uL (0.1-1.4); ABSOLUTE NEUT (AUTO) 6.8 10^3/uL (1.7-8.2); BASOPHILS % (AUTO) 0.9 % (0-2); EOSINOPHILS % (AUTO) 1.1 % (0-6); HEMATOCRIT 42.7 % (37.9-51.0); HEMOGLOBIN 14.7 g/dL (13.5-17.0); LYMPHOCYTES % (AUTO) 23.1 % (13-45); MEAN CORPUSCULAR HGB CONC 34.5 g/dL (32.0-36.0); MEAN CORPUSCULAR VOLUME 90 fl (80-97); MONOCYTES % (AUTO) 8.9 % (3-13); PLATELET COUNT 256 10^3/uL (150-450); RED BLOOD COUNT 4.76 10^6/uL (4.35-5.55); RED CELL DISTRIBUTION WIDTH 14.8 % (11.5-14.0); TOTAL CELLS COUNTED % (AUTO) 100 %; WHITE BLOOD COUNT 10.3 10^3/uL (4.0-10.5)
[2019-08-28 20:02] LABS: ALBUMIN 4.2 g/dL (3.5-5.0); ALKALINE PHOSPHATASE 88 U/L (38-126); ANION GAP 10 (5-19); ASPARTATE AMINO TRANSFERASE 28 U/L (17-59); BILIRUBIN,DIRECT 0.2 mg/dL (0.0-0.4); BILIRUBIN,TOTAL 0.7 mg/dL (0.2-1.3); BLOOD UREA NITROGEN 27 mg/dL (7-20); CALCIUM 9.6 mg/dL (8.4-10.2); CARBON DIOXIDE 26 mmol/L (22-30); CHLORIDE 104 mmol/L (98-107); GLUCOSE 109 mg/dL (75-110); POTASSIUM 4.5 mmol/L (3.6-5.0); TOTAL PROTEIN 7.5 g/dL (6.3-8.2)
[2019-08-28 20:14] LABS: APPEARANCE,URINE CLEAR; BILIRUBIN,URINE NEGATIVE (NEGATIVE); COLOR,URINE YELLOW; GLUCOSE, URINE NEGATIVE (NEGATIVE); KETONES,URINE NEGATIVE (NEGATIVE); LEUKOCYTE ESTERASE,URINE NEGATIVE (NEGATIVE); NITRITE,URINE NEGATIVE (NEGATIVE); PROTEIN,URINE NEGATIVE (NEGATIVE); URINE SPECIFIC GRAVITY 1.015; UROBILINOGEN,URINE NEGATIVE mg/dL (<2.0)
--- NOTE | 2019-08-28 21:14 | RADIOLOGY REPORT (SQ) ---
EXAM DESCRIPTION: CT ABDOMEN PELVIS WITH IV CONTRAST COMPLETED DATE/TME: 08/28/2019 19:00 CLINICAL HISTORY: 63 years, Male, lower abd pain eval for diverticulitis COMPARISON: None. TECHNIQUE: Contrast enhanced CT of the abdomen/pelvis was performed. Coronal and sagittal reformations were created. Images stored on PACS. All CT scanners at this facility use dose modulation, iterative reconstruction, and/or weight based dosing when appropriate to reduce radiation dose to as low as reasonably achievable (ALARA). [facility]: Dose Right [facility]: CareDose [facility]: Dose Right [facility]: Teradose 4D [facility]: Pluromed LIMITATIONS: None. FINDINGS: Limited evaluation of the lower chest reveals bands of opacity about both lung bases, indicating areas of atelectasis and/or scar. Calcifications are noted about the coronary vessels. The liver is diffusely low in attenuation relative to the spleen. A more focal area of hypodensity is noted about the left hepatic lobe adjacent to the falciform ligament, either indicating third inflow artifact or a more focal area of fatty infiltration. Liver otherwise enhances normally. Spleen, pancreas, gallbladder, and both adrenal glands appear normal. Subcentimeter low-density lesion is noted about the lower pole of the right kidney, too small to accurately characterize. A simple cyst is evident about the lower pole of the left kidney. Both kidneys otherwise enhance symmetrically. There is no hydronephrosis or hydroureter. The urinary bladder is collapsed, thus evaluation is limited. Scattered colonic diverticula are noted. There is associated inflammatory stranding adjacent to a sigmoid diverticulum on image 87 of series 3. No adjacent drainable fluid collection or extraluminal free air is identified. No evidence of bowel obstruction. Appendix is not visualized. Mild calcifications are noted about the abdominal aorta. No suspicious lymphadenopathy or drainable fluid collections are appreciated. Bone windows show no destructive osseous lesions. IMPRESSION: Findings consistent with acute, uncomplicated sigmoid diverticulitis. Hepatic steatosis. TECHNICAL DOCUMENTATION: Quality ID # [id number]: Final reports with documentation of one or more dose reduction techniques (e.g., Automated exposure control, adjustment of the mA and/or kV according to patient size, use of iterative reconstruction technique) copyright 2011 [employer]- All Rights Reserved
[2019-08-28] MEDS ORDERED: CIPROFLOXACIN HCL 500 MG TABLET PO ONE (21:53)
[2019-08-28] MEDS ORDERED: MORPHINE SULFATE 10 MG/ML INJ IV ONE (21:53)
[2019-08-28] MEDS ORDERED: ONDANSETRON HCL INJ/PF 4 MG/2 ML SDV IV ONE (21:53)
[2019-08-28] MEDS ORDERED: METRONIDAZOLE 500 MG TABLET PO ONE (21:53)
[2019-08-28] MEDS ORDERED: HYDROCODONE/ACETAMINOPHEN 5-325 MG (6 TAB/ER DISP) PO PRN (22:15)
[2019-08-28 22:36] VITALS: BP 111/65
== END 2019-08-28 22:30 | disposition home or self-care (01) ==
LOC: ER 18:38
DX: K57.32 Diverticulitis of large intestine without perforation or abscess without bleeding (principal); R10.30 Lower abdominal pain, unspecified; I10 Essential (primary) hypertension; Z88.0 Allergy status to penicillin; I50.9 Heart failure, unspecified; I11.0 Hypertensive heart disease with heart failure; Z95.810 Presence of automatic (implantable) cardiac defibrillator
CPT/HCPCS: 99284; 96374; 96375; 36415; 83690; 85025; 80053; 81001; 74177; J2270; J2405

== ENCOUNTER 2019-09-23 16:10 | Emergency (ER) | payer OTHER ==
[2019-09-23] MEDS ORDERED: ASPIRIN 81 MG TABLET, CHEWABLE PO ONE (16:41)
--- NOTE | 2019-09-23 16:41 | ER Document Report ---
ED Medical Screen (RME) - General Chief Complaint: Chest Congestion Stated Complaint: CHEST PRESSURE/COUGH Time Seen by Provider: 09/23/19 16:35 Mode of Arrival: Ambulatory Information source: Patient Notes: 63-year-old male presented to ED for chest pain to the right shoulder with shortness of breath times a couple days. States he has a pacemaker defibrillator but it has not gone off. He has had the pain for couple days. 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 He has had one baby aspirin this morning and on any other blood thinners. He is alert oriented respirations regular nonlabored I have greeted and performed a rapid initial assessment of this patient. A comprehensive ED assessment and evaluation of the patient, analysis of test results and completion of medical decision making process will be conducted by an additional ED providers. TRAVEL OUTSIDE OF THE [place] IN LAST 30 DAYS: No - Related Data Allergies/Adverse Reactions: amoxicillin [Amoxicillin] Allergy (Severe, Verified 09/23/19 16:35) Difficulty breathing Past Medical History - General Information source: Patient - Social History Cigarette use (# per day): No Frequency of alcohol use: None Drug Abuse: None Lives with: Family Family history: Reviewed & Not Pertinent - Past Medical History Cardiac Medical History: Reports: Hx Congestive Heart Failure, Hx Hypercholesterolemia, Hx Hypertension - ON MEDICATION, Other - Pacemaker defibrillator Pulmonary Medical History: Reports: None EENT Medical History: Reports: None Neurological Medical History: Reports: None Endocrine Medical History: Reports: Hx Diabetes Mellitus Type 2 Renal/ Medical History: Reports: Hx Renal Insufficiency Malignancy Medical History: Reports None GI Medical History: Reports: Hx Gastroesophageal Reflux Disease, Hx Ulcer - YEARS AGO, Hx Colonoscopy, Hx Endoscopy Musculoskeltal Medical History: Reports Hx Arthritis, Reports Hx Musculoskeletal Trauma Skin Medical History: Reports None Psychiatric Medical History: Reports: None Traumatic Medical History: Reports: Hx Fractures Infectious Medical History: Reports: None. Denies: Hx Hepatitis Past Surgical History: Reports: Hx Appendectomy, Hx Cardiac Surgery - pacemaker placement, Hx Inguinal Hernia, Hx Pacemaker - defibrillator - Immunizations Hx Diphtheria, Pertussis, Tetanus Vaccination: Yes - UTD History of Pneumococcal Vaccine: Yes History of Influenza Vaccine for 05/2019 - 10/2019 Season: Yes Physical Exam - Vital signs Vitals: Temp Pulse Resp BP Pulse Ox 98.0 F 66 16 131/80 H 95 09/23/19 16:13 09/23/19 16:13 09/23/19 16:13 09/23/19 16:13 09/23/19 16:13 Course - Vital Signs Vital signs: Temp Pulse Resp BP Pulse Ox 98.0 F 66 16 131/80 H 95 09/23/19 16:13 09/23/19 16:13 09/23/19 16:13 09/23/19 16:13 09/23/19 16:13
--- NOTE | 2019-09-23 17:03 | RADIOLOGY REPORT (SQ) ---
EXAM DESCRIPTION: CHEST 2 VIEWS COMPLETED DATE/TIME: 09/23/2019 4:52 pm REASON FOR STUDY: chest pain COMPARISON: 09/20/2018 EXAM PARAMETERS: NUMBER OF VIEWS: two views TECHNIQUE: Digital Frontal and Lateral radiographic views of the chest acquired. RADIATION DOSE: NA LIMITATIONS: none FINDINGS: LUNGS AND PLEURA: Stable minimal bibasilar scarring or atelectasis. No acute pulmonary c onsolidation. No pneumothorax or pleural effusion. MEDIASTINUM AND HILAR STRUCTURES: No masses or contour abnormalities. HEART AND VASCULAR STRUCTURES: Heart normal size. No evidence for failure. BONES: No acute findings. HARDWARE: Cardiac pacemaker defibrillator. OTHER: No other significant finding. IMPRESSION: 1. No significant interval changes since the prior study dated 09/20/2018. Stable minima l bibasilar atelectasis or scar. No acute findings. TECHNICAL DOCUMENTATION: JOB ID: [id number] [employer]- All Rights Reserved Reading location - IP/workstation name: [email or web address]
[2019-09-23 19:06] LABS: ABSOLUTE EOSINOPHILS # (AUTO) 0.4 10^3/uL (0.0-0.6); ABSOLUTE LYMPHOCYTES (AUTO) 2.4 10^3/uL (0.5-4.7); ABSOLUTE MONOCYTES (AUTO) 1.1 10^3/uL (0.1-1.4); ABSOLUTE NEUT (AUTO) 6.7 10^3/uL (1.7-8.2); BASOPHILS % (AUTO) 0.4 % (0-2); HEMATOCRIT 44.7 % (37.9-51.0); HEMOGLOBIN 15.1 g/dL (13.5-17.0); LYMPHOCYTES % (AUTO) 22.5 % (13-45); MEAN CORPUSCULAR HEMOGLOBIN 30.5 pg (27.0-33.4); MEAN CORPUSCULAR HGB CONC 33.8 g/dL (32.0-36.0); MEAN CORPUSCULAR VOLUME 90 fl (80-97); MONOCYTES % (AUTO) 10.4 % (3-13); PLATELET COUNT 272 10^3/uL (150-450); RED BLOOD COUNT 4.95 10^6/uL (4.35-5.55); RED CELL DISTRIBUTION WIDTH 14.8 % (11.5-14.0); SEGMENTED NEUTROPHILS % (AUTO) 62.7 % (42-78); TOTAL CELLS COUNTED % (AUTO) 100 %; WHITE BLOOD COUNT 10.6 10^3/uL (4.0-10.5)
[2019-09-23 19:31] LABS: ALBUMIN 4.3 g/dL (3.5-5.0); ALKALINE PHOSPHATASE 95 U/L (38-126); ANION GAP 10 (5-19); ASPARTATE AMINO TRANSFERASE 28 U/L (17-59); BILIRUBIN,TOTAL 0.8 mg/dL (0.2-1.3); BLOOD UREA NITROGEN 21 mg/dL (7-20); CALCIUM 9.3 mg/dL (8.4-10.2); CARBON DIOXIDE 27 mmol/L (22-30); CHLORIDE 103 mmol/L (98-107); GLUCOSE 103 mg/dL (75-110); POTASSIUM 4.8 mmol/L (3.6-5.0); TOTAL PROTEIN 7.8 g/dL (6.3-8.2)
--- NOTE | 2019-09-23 21:58 | EKG REPORT ---
SEVERITY:- ABNORMAL ECG - ATRIAL-SENSED VENTRICULAR-PACED RHYTHM : Confirmed by: Lauren Lao MD 23-Sep-2019 21:58:20
[2019-09-23] MEDS ORDERED: PREDNISONE 20 MG TABLET PO ONE (23:18)
[2019-09-23] MEDS ORDERED: IPRATROPIUM/ALBUTEROL 0.5-2.5 MG/3 ML AMPUL NEB ONE (23:18)
--- NOTE | 2019-09-23 23:18 | ER Document Report ---
ED General - General Chief Complaint: Chest Pain Stated Complaint: CHEST PRESSURE/COUGH Time Seen by Provider: 09/23/19 16:35 Mode of Arrival: Ambulatory Information source: Patient TRAVEL OUTSIDE OF THE [place] IN LAST 30 DAYS: No - HPI Onset: Other - over the last several days Onset/Duration: Gradual Quality of pain: Pressure Severity: Moderate Pain Level: 2 Associated symptoms: Nonproductive cough Exacerbated by: Coughing Relieved by: Remaining still Similar symptoms previously: No Recently seen / treated by doctor: No Notes: 63 year old male with a history of CHF s/p AICD, HTN, HLD, DM, GERD here for chest pain, cough, and shortness of breath. The patient thinks has also had subjective fevers and he has lost his voice. The patient denies using more pillows to sleep, increased leg edema, weight gain, radiation of chest pain. The patient says he always has some exertional SOB but it seems somewhat worse now. The patient denies pleuritic chest pain. The patient says he had a cardiac cath and stress test 3 years ago and he did not need any interventions then. - Related Data Allergies/Adverse Reactions: amoxicillin [Amoxicillin] Allergy (Severe, Verified 09/23/19 16:35) Difficulty breathing Past Medical History - General Information source: Patient - Social History Smoking Status: Never Smoker Cigarette use (# per day): No Frequency of alcohol use: None Drug Abuse: None Lives with: Family Family History: CAD, DM, Hypertension Patient has suicidal ideation: No Patient has homicidal ideation: No - Past Medical History Cardiac Medical History: Reports: Hx Congestive Heart Failure, Hx Hypercholesterolemia, Hx Hypertension - ON MEDICATION, Other - Pacemaker defibrillator Pulmonary Medical History: Reports: None EENT Medical History: Reports: None Neurological Medical History: Reports: None Endocrine Medical History: Reports: Hx Diabetes Mellitus Type 2 Renal/ Medical History: Reports: Hx Renal Insufficiency Malignancy Medical History: Reports None GI Medical History: Reports: Hx Gastroesophageal Reflux Disease, Hx Ulcer - YEARS AGO, Hx Colonoscopy, Hx Endoscopy. Denies: Hx Hepatitis Musculoskeletal Medical History: Reports Hx Arthritis, Reports Hx Musculoskeletal Trauma Skin Medical History: Reports None Psychiatric Medical History: Reports: None Traumatic Medical History: Reports: Hx Fractures Infectious Medical History: Reports: None. Denies: Hx Hepatitis Past Surgical History: Reports: Hx Appendectomy, Hx Cardiac Surgery - pacemaker placement, Hx Inguinal Hernia, Hx Pacemaker - defibrillator - Immunizations Hx Diphtheria, Pertussis, Tetanus Vaccination: Yes - UTD History of Pneumococcal Vaccine: Yes Hx Pneumococcal Vaccination: 05/20/17 Review of Systems - Review of Systems Constitutional: No symptoms reported EENT: No symptoms reported Cardiovascular: Chest pain Respiratory: Cough, Short of breath Gastrointestinal: No symptoms reported Genitourinary: No symptoms reported Male Genitourinary: No symptoms reported Musculoskeletal: No symptoms reported Skin: No symptoms reported Hematologic/Lymphatic: No symptoms reported Neurological/Psychological: No symptoms reported -: Yes All other systems reviewed and negative Physical Exam - Vital signs Vitals: Temp Pulse Resp BP Pulse Ox 98.0 F 66 16 131/80 H 95 09/23/19 16:13 09/23/19 16:13 09/23/19 16:13 09/23/19 16:13 09/23/19 16:13 - Notes Notes: GENERAL: Well-appearing, well-nourished and in no acute distress. HEAD: Atraumatic, normocephalic. EYES: Pupils equal round and reactive to light, extraocular movements intact, sclera anicteric, conjunctiva are normal. ENT: TMs normal, nares patent, oropharynx clear without exudates. Moist mucous membranes. NECK: Normal range of motion, supple without lymphadenopathy or JVD. LUNGS: Breath sounds clear to auscultation bilaterally and equal. No wheezes rales or rhonchi. HEART: Regular rate and rhythm without murmurs, rubs or gallops. ABDOMEN: Soft, nontender, normoactive bowel sounds. No guarding, no rebound. No masses appreciated. EXTREMITIES: Normal range of motion, no pitting or edema. No clubbing or cyanosis. NEUROLOGICAL: Cranial nerves II through XII grossly intact. Normal speech, n ormal gait. PSYCH: Normal mood, normal affect. SKIN: Warm, Dry, normal turgor, no rashes or lesions noted. Course - Re-evaluation Re-evalutation: 09/24/19 01:06 The patient is here for cough, chest pain, horse voice. The patient had 2 sets of negative Trops, a normal BNP, unchanged EKG, and a clear chest xray. The patient has a stress test and a cardiac cath in the last 3 years. Patient told he likely has a URI but that he should follow up with his PCP and Field Control Inspector regardless. Will DC patient with scripts for Tessalon Perles and Albuterol. Patient felt better in the ER after treatment with a neb and prednisone. - Vital Signs Vital signs: Temp Pulse Resp BP Pulse Ox 97.9 F 71 25 H 118/79 94 09/23/19 21:10 09/23/19 21:10 09/23/19 23:00 09/23/19 23:00 09/23/19 23:00 - Laboratory Result Diagrams: 09/23/19 18:27 09/23/19 18:27 Laboratory results interpreted by me: 09/23/19 09/23/19 18:27 18:27 WBC 10.6 H RDW 14.8 H BUN 21 H Creatinine 1.59 H Est GFR ( Amer) 53 L Est GFR (MDRD) Non-Af 44 L Lipase 307.4 H - Diagnostic Test Radiology reviewed: Image reviewed, Reports reviewed - EKG Interpretation by Al EKG shows normal: Sinus rhythm, Banquete, Intervals, QRS Complexes Rate: Normal Additional EKG results interpreted by me: 09/23/19 23:25 T wave inversions in aVR, aVL. Atrial Sensed, Ventricular Paced. Discharge - Discharge Clinical Impression: Cough Upper respiratory infection Qualifiers: URI type: unspecified viral URI Qualified Code(s): J06.9 - Acute upper respiratory infection, unspecified Chest pain Qualifiers: Chest pain type: unspecified Qualified Code(s): R07.9 - Chest pain, unspecified Condition: Stable Disposition: HOME, SELF-CARE Instructions: Chest Pain of Unclear Cause ([facility]), Upper Respiratory Illness ([facility]), Viral Syndrome ([facility]) Additional Instructions: Follow up with your primary care doctor and with Field Control Inspector and tell them you were in the ER for chest pain and cough and that you had blood work, a chest xray and an EKG. Your Troponins (you had 2 done were both completely negative and your BNP, which is a marker of heart failure, was within normal limits). Seek medical attention for persistent chest pain, trouble breathing or if worse. Use Tessalon Perles for cough and use Albtuerol for shortness of breath. Prescriptions: Benzonatate [Tessalon Perles 100 mg Capsule] 100 mg PO Q8HP PRN #20 capsule PRN Reason: Albuterol Sulfate [Proair HFA Inhalation Aerosol 8.5 gm MDI] 2 puff IH Q4H PRN #1 mdi PRN Reason:
[2019-09-24 02:39] VITALS: BP 114/78
== END 2019-09-24 02:38 | disposition home or self-care (01) ==
LOC: ER 16:10
DX: J06.9 Acute upper respiratory infection, unspecified (principal); B97.89 Other viral agents as the cause of diseases classified elsewhere; R07.89 Other chest pain; R05 Cough; R06.02 Shortness of breath; R49.0 Dysphonia; I10 Essential (primary) hypertension; E11.9 Type 2 diabetes mellitus without complications; Z95.810 Presence of automatic (implantable) cardiac defibrillator; Z88.0 Allergy status to penicillin
CPT/HCPCS: 93005; 94640; 99285; 36415; 83690; 85025; 80053; 84484; 83880; 71046; 93010; J7512; J7620